=== PATIENT | male | born 1960 | race American Indian/Alaskan Native ===

== ENCOUNTER 2021-11-20 15:33 | Inpatient (IN) | payer MEDICARE ==
[2021-11-20] MEDS ORDERED: SODIUM CHLORIDE 0.9% 1000 ML 1,000 ML IV ONE (15:55)
[2021-11-20] MEDS ORDERED: LIP THERAPY VASELINE TP PRN (15:56)
[2021-11-20] MEDS ORDERED: MINERAL OIL/PETROLATUM, WHITE OPHTH OINT 3.5 GM OU PRN (15:56)
--- NOTE | 2021-11-20 16:09 | Emergency Department Report ---
ED CPR HPI - General Stated Complaint: CARDIAC ARREST Time Seen by Provider: 11/20/21 15:55 Source: EMS, old records reviewed Mode of arrival: Stretcher Limitations: Altered Mental Status - History of Present Illness Initial Comments: CC: cardiac arrest HPI: This is 61 yo male with hx of severe obesity who presents in cardiac arrest via EMS. Neighbors checked in on patient after observing his girlfriend wandering the neighborhood. Neighbor found patient unresponsive. Paramedics discovered patient not breathing, rhythm in asystole. Patient was treated with 3 doses of epinephrine, one dose of naloxone, one dose of sodium bicarbonate. Patient has Combitube in place. After 20 minutes of resuscitation, ROSC achieved just prior to arrival. Neighbors suspect recreational drug use. Paramedics observed drug paraphernalia. I spoke with paula at the bedside. Paula is unable to find the patient. Her son called patient's cell phone. natural resource officer into the phone and gave family update on patient's whereabouts. Kym arrived 1-1/2 hours after patient's presentation. According to kym's history, patient has history of COPD, CHF, diabetes mellitus and cocaine use. Last known use of cocaine was 1 year ago. Most recent hospitalization in July. He does have history of COVID-19 infection. He is normally admitted to [facility]. He did not have any recent illness. MD Complaint: found unresponsive Place: home Bystander CPR Performed: No Shock Advised: No Initial Findings in the Field: unresponsive ROSC in the Field: Yes (Just prior to arrival) Associated Injuries: No Treatments Prior to Arrival: other airway device (Combitube), epinephrine mgs # (3 doses), sodium bicarbonate (one doese), other (one dose naloxone) - Related Data Allergies Allergy/AdvReac Type Severity Reaction Status Date / Time No Known Allergies Allergy Unverified 06/20/16 07:15 ED Review of Systems ROS: Stated complaint: CARDIAC ARREST Other details as noted in HPI Comment: Unobtainable due to pts medical conditions (cardiac arrest nonrespons hannah) ED Past Medical Hx - Past Medical History Previous Medical History?: Yes Hx Hypertension: Yes Hx Congestive Heart Failure: Yes Hx Diabetes: Yes Hx COPD: Yes Additional medical history: severe obesity - Surgical History Past Surgical History?: Yes Additional Surgical History: Knee replacement - Family History Family history: other (unable to obtain this information) - Social History Smoking Status: Current Every Day Smoker Substance Use Type: Cocaine ED Physical Exam - General Limitations: Altered Mental Status General appearance: obtunded, other (GCS 3 no spontaneous movement, limp extremities, obese habitus) - Head Head exam: Present: atraumatic, normocephalic - Eye Pupils: Present: other (fixed dilated pupils) - ENT ENT exam: Present: normal orophraynx, other (EGD in place, no bleeding) - Neck Neck exam: Present: normal inspection, full ROM - Respiratory Respiratory exam: Present: other (Equal course breath sounds with ventilation, no spontaneous respiration) - Cardiovascular Cardiovascular Exam: Present: regular rate, normal rhythm, tachycardia. Absent: systolic murmur, diastolic murmur - GI/Abdominal GI/Abdominal exam: Present: soft, distended. Absent: tenderness, guarding, rebound - Extremities Exam Extremities exam: Present: normal inspection, other (No deformity) - Back Exam Back exam: Present: normal inspection - Neurological Exam Neurological exam: Present: other (No spontaneous movement, no withdrawal from painful stimuli) - Psychiatric Psychiatric exam: Present: other (Nonverbal eyes closed) - Skin Skin exam: Present: intact, pallor. Absent: cyanosis, diaphoretic, erythema, urticaria ED Course Vital Signs 11/20/21 11/20/21 15:55 16:00 Temperature 97 F L Pulse Rate 115 H 130 H Blood Pressure 89/45 84/36 O2 Sat by Pulse 100 89 Oximetry - ABG Interpretation Ph: 7.035 PCO2: 71 PO2: 90 Bicarbonate: -13.2 Interpretation: respiratory acidosis - Intubation Time Out Performed: No (Emergent situation cardiac arrest) Laryngoscope: Vita Size: 4 Assist Device Used: fiberoptic device (Video laryngoscopy) ET Tube Size: 7.5 Tube Secured Depth (cm): 22 Tube Secured Location: lips Tube Placement Confirmation: visualized tube passing t Patient Tolerated Procedure: well Intubation Complications: none - IO Left Tibia Consent Obtained: emergent situation Time Out Performed: Yes IO Instrument Used to Penetrate the Cortex: battery powered IO drill Patient Tolerated Procedure: well Complications: none ED Medical Decision Making - Lab Data Result diagrams: 11/20/21 16:22 11/20/21 16:22 Laboratory Results - last 24 hr 11/20/21 11/20/21 11/20/21 16:22 16:22 16:22 WBC 18.3 H RBC 4.26 Hgb 14.3 Hct 45.2 MCV 106 H MCH 34 H MCHC 32 RDW 16.5 H Plt Count 252 Lymph # (Auto) Student Union Consultant PT 15.7 H INR 1.12 APTT 32.8 D-Dimer 8419.54 H ABG pH ABG pCO2 ABG pO2 ABG HCO3 ABG O2 Saturation ABG O2 Content ABG Base Excess ABG Hemoglobin ABG Carboxyhemoglobin ABG Methemoglobin Oxyhemoglobin FiO2 Sodium TNR Potassium TNR Chloride TNR Carbon Dioxide TNR Anion Gap TNR BUN TNR Creatinine TNR Estimated GFR TNR BUN/Creatinine Ratio TNR Glucose TNR Calcium TNR Total Bilirubin TNR AST TNR ALT TNR Alkaline Phosphatase TNR Troponin T < 0.010 Total Protein TNR Albumin TNR Albumin/Globulin Ratio TNR 11/20/21 16:25 WBC RBC Hgb Hct MCV MCH MCHC RDW Plt Count Lymph # (Auto) PT INR APTT D-Dimer ABG pH 7.035 L* ABG pCO2 71.3 ABG pO2 90.4 H ABG HCO3 18.6 L ABG O2 Saturation 91.6 L ABG O2 Content 17.7 ABG Base Excess -13.2 L ABG Hemoglobin 14.4 ABG Carboxyhemoglobin 4.5 ABG Methemoglobin 0.7 Oxyhemoglobin 86.9 L FiO2 100 Sodium Potassium Chloride Carbon Dioxide Anion Gap BUN Creatinine Estimated GFR BUN/Creatinine Ratio Glucose Calcium Total Bilirubin AST ALT Alkaline Phosphatase Troponin T Total Protein Albumin Albumin/Globulin Ratio - Radiology Data Radiology results: report reviewed Patient Name: VALERI LOVE Gender: Male Date of : 1960 Referring Provider: FLO BRADY Organization: [facility] Accession Number: [id number] Requested Date: November 20, 2021 15:55 Report Status: Final Requested Procedure: 1 Procedure Description: XR chest 1V ap Modality: XR Findings Reporting MD: Fernandez Moralez Dictation Time: November 20, 2021 15:15 Conveyor Maintenance Mechanic: Not available Liquor Store Manager Date: Chest single view INDICATION: Dyspnea IMPRESSION: Endotracheal tube is about 2.5 cm above the louise. Severe airspace disease is noted within the left lung. The patient is severely rotated. Signer Name: Fernandez Moralez MD Signed: 11/20/2021 3:15 PM Workstation Name: [id number] Patient Name: VALERI LOVE Gender: Male Date of : 1960 Referring Provider: FLO BRADY Organization: [facility] Accession Number: [id number] Requested Date: November 20, 2021 16:06 Report Status: Final Requested Procedure: 1 Procedure Description: CT abdomen pelvis w con Modality: CT Findings Reporting MD: Fernandez Moralez Dictation Time: November 20, 2021 17:11 Conveyor Maintenance Mechanic: Not available Liquor Store Manager Date: CT chest w con CT abdomen pelvis w con, INDICATION / CLINICAL INFORMATION: Chest and abdominal pain. Cardiac arrest unresponsive TECHNIQUE: CT of the chest abdomen and pelvis following 100 mL O[address]ip[address] scans at this location are performed using CT dose reduction for ALARA by means of automated exposure control. COMPARISON: None available. FINDINGS: CHEST: Moderate bibasilar opacities likely related to atelectasis within both lower lungs. Tiny bilateral pleural effusions are present. The heart appears mildly enlarged. There is moderate coronary artery calcification. The endotracheal tube terminates about 3 cm above the louise. Right IJ central venous line terminates at the upper SVC level. Abdomen and pelvis: Fatty liver. The spleen pancreas right adrenal gland and kid neys are unremarkable. Prominent mild lipoma arising from the left adrenal gland measuring 3 cm in diameter with large amount of macroscopic fat. Moderate stool burden identified throughout the colon. Urinary bladder is collapsed by Williamson catheter. Small fat-containing bilateral inguinal hernias. Sigmoid diverticulosis without diverticulitis. No small or large bowel obstruction is identified. Scattered atherosclerotic calcification throughout a nondilated abdominal aorta. Review of bone windows demonstrates fusion involving L2-L3 vertebral bodies. IMPRESSION: 1. Cardiomegaly with medial bibasilar opacities probably related to atelectasis/low lung volumes. Underlying pneumonia/aspiration is difficult to exclude 2. Fatty liver. 3. Large stool burden identified throughout much of the proximal colon. Sigmoid diverticulosis without diverticulitis. Other incidental findings as noted above. Signer Name: Fernandez Moralez MD Signed: 11/20/2021 5:11 PM Workstation Name: [id number] Patient Name: VALERI LOVE Gender: Male Date of : 1960 Referring Provider: FLO BRADY Organization: [facility] Accession Number: [id number] Requested Date: November 20, 2021 16:05 Report Status: Final Requested Procedure: 1 Procedure Description: CT cervical spine wo con Modality: CT Findings Reporting MD: Artur Rich Dictation Time: November 20, 2021 17:20 Conveyor Maintenance Mechanic: Not available Liquor Store Manager Date: . CT CERVICAL SPINE: 11/20/2021 INDICATION / CLINICAL INFORMATION: cardiac arrest unresponsive. COMPARISON: None available. FINDINGS: CT images of the cervical spine were obtained. Images are evaluated in the axial, coronal, and sagittal planes. There is no evidence of acute osseous injury. Vertebral body height and alig nment is well preserved. There is no evidence of canal or foraminal narrowing. CRANIOCERVICAL JUNCTION: Unremarkable. PARASPINAL STRUCTURES: Unremarkable. Endotracheal tube is in place. IMPRESSION: No evidence of acute cervical spine abnormality. All CT scans at this location are performed using dose reduction to ALARA by means of automated exposure control. Signer Name: Artur Rich MD Signed: 11/20/2021 5:20 PM Workstation Name: [id number] Patient Name: VALERI LOVE Gender: Male Date of : 1960 Referring Provider: FLO BRADY Organization: [facility] Accession Number: [id number] Requested Date: November 20, 2021 16:05 Report Status: Final Requested Procedure: 1 Procedure Description: CT chest w con Modality: CT Findings Reporting MD: Fernandez Moralez Dictation Time: November 20, 2021 17:11 Conveyor Maintenance Mechanic: Not available Liquor Store Manager Date: CT chest w con CT abdomen pelvis w con, INDICATION / CLINICAL INFORMATION: Chest and abdominal pain. Cardiac arrest unresponsive TECHNIQUE: CT of the chest abdomen and pelvis following 100 mL Omnipaque [address] scans at this location are performed using CT dose reduction for ALARA by means of automated exposure control. COMPARISON: None available. FINDINGS: CHEST: Moderate bibasilar opacities likely related to atelectasis within both lower lungs. Tiny bilateral pleural effusions are present. The heart appears mildly enlarged. There is moderate coronary artery calcification. The endotracheal tube terminates about 3 cm above the louise. Right IJ central venous line terminates at the upper SVC level. Abdomen and pelvis: Fatty liver. The spleen pancreas right adrenal gland and kidneys are unremarkable. Prominent mild lipoma arising from the left adrenal gland measuring 3 cm in diameter with large amount of macroscopic fat. Moderate stool burden identified throughout the colon. Urinary bladder is collapsed by Williamson catheter. Small fat-containing bilateral inguinal hernias. Sigmoid diverticulosis without diverticulitis. No small or large bowel obstruction is identified. Scattered atherosclerotic calcification throughout a nondilated abdominal aorta. Review of bone windows demonstrates fusion involving L2-L3 vertebral bodies. IMPRESSION: 1. Cardiomegaly with medial bibasilar opacities probably related to atelectasis/low lung volumes. Underlying pneumonia/aspiration is difficult to exclude 2. Fatty liver. 3. Large stool burden identified throughout much of the proximal colon. Sigmoid diverticulosis without diverticulitis. Other incidental findings as noted above. Signer Name: Fernandez Moralez MD Signed: 11/20/2021 5:11 PM Workstation Name: [id number] Patient Name: VALERI LOVE Gender: Male Date of : 1960 Referring Provider: FLO BRADY Organization: [facility] Accession Number: [id number] Requested Date: November 20, 2021 16:04 Report Status: Final Requested Procedure: 1 Procedure Description: CT head/brain wo con Modality: CT Findings Reporting MD: Artur Rich Dictation Time: November 20, 2021 17:19 Conveyor Maintenance Mechanic: Not available Liquor Store Manager Date: CT BRAIN: 11/20/2021 INDICATION / CLINICAL INFORMATION: cardiac arrest unresponsive encephalopathic. COMPARISON: None available. FINDINGS: BRAIN/INTRACRANIAL STRUCTURES: Unenhanced CT images of the brain were obtained. There is diffuse loss of braun-white differentiation. There is no visible sulci. Ventricles are small in size. Overall brain parenchymal density appears to be decreased, resulting in enhanced visualization of vascular structures. The overall appearance suggests diffuse cerebral edema, consistent with anoxic injury. EXTRACRANIAL STRUCTURES: Unremarkable. Incidental note is made of a left ocular prosthesis IMPRESSION: Findings consistent with diffuse cerebral edema as described above. All CT scans at this location are performed using dose reduction to ALARA by means of automated exposure control. Signer Name: Artur Rich MD Signed: 11/20/2021 5:19 PM Workstation Name: [id number] - Medical Decision Making Mr. Mace is a 61-year-old male with history of CHF, COPD, diabetes mellitus and cocaine use who presents status post cardiac arrest. Patient required CPR and ACLS resuscitation on 3 occasions while in the emergency department. I informed fianc of the very poor prognosis. Neurological exam and pupillary response are indicative of anoxic brain injury. CT head corroborates this suspicion. Patient is admitted to the ICU in critical condition. Work-up revealed nonspecific leukocytosis. I suspect arrhythmia or acute myocardial infarction as a result of recent cocaine use. Patient is currently requiring triple vasopressor therapy: Norepinephrine, dopamine and vasopressin Critical Care Time: Yes Critical care time in (mins) excluding proc time.: 70 Critical care attestation.: If time is entered above; I have spent that time in minutes in the direct care of this critically ill patient, excluding procedure time. 70 minutes of critical care time excluding procedures were used in the care of the patient. I came immediately to the bedside upon patient's arrival. I obtained history from EMS at the bedside. I discussed treatment plan with the nursing team members. I reviewed electronic record. Patient required multiple interventions and reassessments. I spoke with family members at the bedside ED Disposition Clinical Impression: Acute hypoxemic respiratory failure, Cardiac arrest, Cardiogenic shock, Sepsis, Toxic metabolic encephalopathy Disposition: 09 ADMITTED INPATIENT Is pt being admited?: Yes Does the pt Need Aspirin: No Condition: Critical
[2021-11-20] MEDS ORDERED: NORepinephrine/NS 8 MG-250 ML 8 MG/250 ML INFUS..BTL IV ONE (16:13)
--- NOTE | 2021-11-20 16:16 | History and Physical Report ---
History of Present Illness Chief complaint: Unresponsive History of present illness: 61 YO Male with Unknown PMH presents to ED for evaluation. Patient actively undergoing cardiac arrest the time my evaluation and is unable provide history. Patient history taken EMS staff, ED staff, as well as patient neighbors. As per patient neighbors the patient's girlfriend was observed wandering aimlessly through the neighborhood appeared confused. Neighbor subsequently went to the patient's home to do a well check. The patient was found down and unresponsive in his home. EMS was notified and upon arrival the patient was found to be in asystolic arrest. Patient initiated on ACLS protocol and intubated in the field and subsequent transported to [facility] for further care and evaluation of the aforementioned symptoms. The patient was seen and evaluated in the emergency department. All lab and imaging studies reviewed. Patient found to be in cardiac arrest complicated by acute hypoxemic respiratory failure. Patient treated" with ACLS protocol with eventual return of perfusing cardiac rhythm. Patient subsequently intubated and placed on vent support. Patient found to have septic shock with systolic blood pressure in the 60s. Patient initiated on sepsis protocol as well as IV pressor support. No further history is obtainable. Prior admission on 09/21/2012 reviewed. No medication listed at time of admission for reconciliation. Advanced care planning conducted in ED. CT chest, CT head, CT abdomen pelvis pending at time of admission. Patient medically unstable at time of my evaluation and unable to undergo diagnostic imaging studies. Past History Past Medical History: No medical history, other (Unable to obtain) Past Surgical History: No surgical history, Other (Unable to obtain) Social history: no significant social history, other (Unable to obtain) Family history: no significant family history, other (Unable to obtain) Medications and Allergies Allergies Allergy/AdvReac Type Severity Reaction Status Date / Time No Known Allergies Allergy Unverified 06/20/16 07:15 Active Meds: Active Medications Famotidine (Famotidine 20 Mg/2 Ml Inj) 20 mg IV BID FRANK Hydrophilic Ointment (Lip Therapy Vaseline) 1 applic TP Q2HR PRN PRN Reason: Dry Lips Sodium Chloride (Nacl 0.9% 1000 Ml) 1,000 mls @ 999 mls/hr IV BOLUS ONE Stop: 11/20/21 16:55 Multi-Ingred Cream/Lotion/Oil/Oint (Mineral Oil/Petrolatum, White Ophth Oint 3.5 Gm) 1 applic OU Q4HR PRN PRN Reason: Dry Eye(s) Senna/Docusate Sodium (Sennosides/Docusate Sodium 8.6/50 Mg Tab) 1 tab FEEDTUBE BID FRANK Review of Systems ROS unobtainable: due to endotracheal tube, due to mental status Exam - Constitutional General appearance: Present: severe distress - EENT Eyes: Present: miosis ENT: hearing decreased - Neck Neck: Present: supple, normal ROM - Respiratory Respiratory effort: labored Respiratory: bilateral: diminished, rhonchi - Cardiovascular Heart Sounds: Present: S1 & S2. Absent: rub, click - Extremities Extremities: pulses symmetrical Extremity abnormal: edema Peripheral Pulses: abnormal (1+ and equal bilateral lower extremities, bilateral upper extremities) - Abdominal General gastrointestinal: Present: soft, non-distended, normal bowel sounds - Integumentary Integumentary: Present: dry, clammy, decreased turgor - Musculoskeletal Musculoskeletal: generalized weakness - Psychiatric Psychiatric: no appropriate mood/affect, no intact judgment & insight, no memory intact - Neurologic Neurologic: CNII-XII intact, no focal deficits, moves all extremities, no gait normal Results - Labs CBC & Chem 7: 11/20/21 16:22 11/20/21 16:22 Assessment and Plan - Patient Problems (1) Sepsis Current Visit: Yes Status: Acute Qualifiers: Severe sepsis shock status: with septic shock Plan to address problem: Sepsis protocol: Chest x-ray, urinalysis, IV antibiotic therapy, blood culture, IV antibiotic therapy, IV fluid resuscitation therapy, monitor urine output every shift, serial lactic acid level, IV pressor support, maintain mean arterial pressure greater than equal 65 The high probability of a clinically significant, sudden or life threatening deterioration of the [cardiac, pulmonary, neuro, renal, infectious disease] system(s) required my full and direct attention, intervention and personal management. The aggregate critical care time was [95] minutes. This time is in addition to time spent performing reported procedures but includes the following: [x] Data Review and interpretation [x] Patient assessment and monitoring of vital signs [x] Documentation [x] Medication orders and management (2) Acute hypoxemic respiratory failure Current Visit: Yes Status: Acute Plan to address problem: Patient independent ambulatory support: Wean vent as tolerated, daily spontaneous breathing trial, daily sedation holiday, critical care team consulted (3) Cardiac arrest Current Visit: Yes Status: Acute Plan to address problem: Cardiology team consulted in ED. Echocardiogram ordered and pending at time of admission. (4) Cardiogenic shock Current Visit: Yes Status: Acute Plan to address problem: IV pressor support, echocardiogram ordered and pending at time of admission, cardiology team consulted. (5) Toxic metabolic encephalopathy Current Visit: Yes Status: Acute Plan to address problem: CT head, neuro check, seizure precautions, aspiration precautions, treat sepsis. (6) Metabolic acidosis Current Visit: Yes Status: Acute Plan to address problem: IV fluid resuscitation therapy, BMP, repeat BMP in a.m., serial lactic acid level. (7) Pneumonia Current Visit: Yes Status: Acute Plan to address problem: Pneumonia protocol: Chest x-ray, CBC, CMP, IV antibiotic therapy, supplemental oxygen, pulse oximetry, nebulizer therapy, blood culture. (8) Obesity hypoventilation syndrome Current Visit: Yes Status: Acute Plan to address problem: Balanced diet, increase physical activity discharge. Outpatient pulmonary follow-up for sleep study. Outpatient bariatric surgery consult. (9) DVT prophylaxis Current Visit: Yes Status: Acute Plan to address problem: SCDs bilateral lower extremities while in bed, prophylactic anticoagulation (10) Advance care planning Current Visit: Yes Status: Acute Plan to address problem: Disease education conducted, care plan discussed, diagnoses discussed, prognosis discussed, patient is full code, +30 minutes.
--- NOTE | 2021-11-20 16:19 | XRay Report ---
Chest single view INDICATION: Dyspnea IMPRESSION: Endotracheal tube is about 2.5 cm above the louise. Severe airspace disease is noted with in the left lung. The patient is severely rotated. Signer Name: Fernandez Moralez MD Signed: 11/20/2021 4:15 PM Workstation Name: [id number]
[2021-11-20 16:46] LABS: Hematocrit 45.2 % (35.5-45.6); Hemoglobin 14.3 gm/dl (11.8-15.2); Mean Corpuscular HGB Conc 32 % (32-34); Mean Corpuscular Volume 106 fl (84-94); Platelet Count 252 K/mm3 (140-440); Red Blood Count 4.26 M/mm3 (3.65-5.03); Red Cell Distribution Width 16.5 % (13.2-15.2)
[2021-11-20 16:47] LABS: ABG Base Excess -13.2 mmol/L (-2.0-3.0); ABG HCO3 18.6 mmol/L (20.0-26.0); ABG Methemoglobin 0.7 % (0.0-1.5); ABG Oxygen Saturation 91.6 % (95.0-99.0); ABG PCO2 71.3 mm Hg; ABG PO2 90.4 mm Hg (80.0-90.0)
[2021-11-20 16:54] LABS: INR 1.12 (0.87-1.13)
[2021-11-20 16:55] LABS: Partial Thromboplastin Time 32.8 Sec. (24.2-36.6)
[2021-11-20 16:58] LABS: ABG PH 7.035 pH Units (7.350-7.450)
--- NOTE | 2021-11-20 17:03 | Procedure Note ---
Date of procedure: 11/20/21 Pre-op diagnosis: Acute respiratory failure, cardiogenic shock Post-op diagnosis: same Procedure: Right internal jugular vein triple-lumen catheter placement under ultrasound guidance. The patient was prepped and draped in the usual sterile fashion. A timeout was taken with the patient nurse at bedside to verify correct patient, correct procedure, as well as the correct operative site. Local anesthesia was obtained with 1% lidocaine. The Seldinger technique was utilized under ultrasound guidance to localize the right internal jugular vein without difficulty. A seeker needle was advanced into the right internal jugular vein under ultrasound guidance without difficulty. A guidewire was then advanced via the seeker needle into the right internal jugular vein and the seeker needle was subsequently removed over the guidewire. A scalpel was used to incise the skin. A dilator was then passed over the guidewire into the right internal jugular vein and subsequently removed. A preflushed triple-lumen catheter was then advanced to the right internal jugular vein over the guidewire. The guidewire was subsequently removed. All 3 ports flush and draw with ease. A Biopatch was placed at the insertion site. 3O nylon suture was utilized to suture the triple-lumen catheter in place. Postoperative chest x-ray shows triple-lumen catheter in satisfactory position in the superior vena cava. No evidence of pneumothorax. Estimated blood loss minimal. Complications none. Specimens none. Anesthesia: local Surgeon: JOSHUA WESTON Estimated blood loss: minimal Pathology: none Condition: critical Disposition: ICU Anesthesia: local Surgeon: JOSHUA WESTON Estimated blood loss: minimal Pathology: none Condition: critical Disposition: ICU
[2021-11-20 17:14] LABS: Blood Urea Nitrogen TNR mg/dL (9-20)
[2021-11-20 17:15] LABS: Alanine Aminotransferase TNR units/L (7-56); BUN/Creatinine Ratio TNR; Calcium TNR mg/dL (8.4-10.2)
[2021-11-20 17:16] LABS: Albumin TNR g/dL (3.9-5)
[2021-11-20 17:17] LABS: Hemolysis Index TNR
[2021-11-20] MEDS ORDERED: HYDROmorphone 1 MG/1 ML INJ IV PRN ×2 (17:36→17:40)
[2021-11-20] MEDS ORDERED: ACETAMINOPHEN 325 MG TAB PO PRN (17:36)
[2021-11-20] MEDS ORDERED: SODIUM CHLORIDE 0.9% 1000 ML IV SOLN IV ONE (17:36)
[2021-11-20] MEDS ORDERED: ACETAMINOPHEN 650 MG RECT SUPP PR PRN (17:40)
[2021-11-20] MEDS ORDERED: ALBUTEROL 2.5 MG/3 ML NEBU IH PRN (17:40)
[2021-11-20] MEDS ORDERED: oxyCODONE /ACETAMINOPHEN 5-325MG TAB PO PRN (17:40)
[2021-11-20] MEDS ORDERED: SODIUM CHLORIDE 0.9% 1000 ML 1,000 ML IV SCH (17:45)
[2021-11-20 18:09] LABS: Band Neutrophils # (Manual) 0.5 K/mm3; Basophils % (Manual) 0 % (0.0-1.8); Macrocytosis 2+; Myelocytes # (Manual) 0.4 K/mm3; Platelet Estimate Consistent w Auto; Total Cells Counted 100
[2021-11-20] MEDS: DOPamine 800 MG/D5W 250ML 800 MG/250 ML BAG IV SCH ×2 (18:09→22:55)
[2021-11-20] MEDS: NORepinephrine/NS 8 MG-250 ML 8 MG/250 ML INFUS..BTL IV SCH (18:09)
--- NOTE | 2021-11-20 18:16 | Cat Scan Report ---
CT chest w con CT abdomen pelvis w con, INDICATION / CLINICAL INFORMATION: Chest and abdominal pain. Cardiac arrest unresponsive TECHNIQUE: CT of the chest abdomen and pelvis following 100 mL Omnipaque [address] scans at this location are p erformed using CT dose reduction for ALARA by means of automated exposure control. COMPARISON: None available. FINDINGS: CHEST: Moderate bibasilar opacities likely related to atelectasis within both lower lungs. Tiny bilat eral pleural effusions are present. The heart appears mildly enlarged. There is moderate coronary art brad calcification. The endotracheal tube terminates about 3 cm above the louise. Right IJ central josue ous line terminates at the upper SVC level. Abdomen and pelvis: Fatty liver. The spleen pancreas right adrenal gland and kidneys are unremarkable . Prominent mild lipoma arising from the left adrenal gland measuring 3 cm in diameter with large rupert unt of macroscopic fat. Moderate stool burden identified throughout the colon. Urinary bladder is collapsed by Williamson catheter . Small fat-containing bilateral inguinal hernias. Sigmoid diverticulosis without diverticulitis. No small or large bowel obstruction is identified. Scattered atherosclerotic calcification throughout a nondilated abdominal aorta. Review of bone windows demonstrates fusion involving L2-L3 vertebral bodies. IMPRESSION: 1. Cardiomegaly with medial bibasilar opacities probably related to atelectasis/low lung volumes. Und erlying pneumonia/aspiration is difficult to exclude 2. Fatty liver. 3. Large stool burden identified throughout much of the proximal colon. Sigmoid diverticulosis withou t diverticulitis. Other incidental findings as noted above. Signer Name: Fernandez Moralez MD Signed: 11/20/2021 6:11 PM Workstation Name: [id number]
--- NOTE | 2021-11-20 18:23 | Cat Scan Report ---
CT BRAIN: 11/20/2021 INDICATION / CLINICAL INFORMATION: cardiac arrest unresponsive encephalopathic. COMPARISON: None available. FINDINGS: BRAIN/INTRACRANIAL STRUCTURES: Unenhanced CT images of the brain were obtained. There is diffuse loss of braun-white differentiation. There is no visible sulci. Ventricles are small in size. Overall brain parenchymal density appears to be decreased, resulting in enhanced visualizati on of vascular structures. The overall appearance suggests diffuse cerebral edema, consistent with anoxic injury. EXTRACRANIAL STRUCTURES: Unremarkable. Incidental note is made of a left ocular prosthesis IMPRESSION: Findings consistent with diffuse cerebral edema as described above. All CT scans at this location are performed using dose reduction to ALARA by means of automated expos ure control. Signer Name: Artur Rich MD Signed: 11/20/2021 6:19 PM Workstation Name: [id number]
--- NOTE | 2021-11-20 18:25 | Cat Scan Report ---
. CT CERVICAL SPINE: 11/20/2021 INDICATION / CLINICAL INFORMATION: cardiac arrest unresponsive. COMPARISON: None available. FINDINGS: CT images of the cervical spine were obtained. Images are evaluated in the axial, coronal, and sagitt al planes. There is no evidence of acute osseous injury. Vertebral body height and alignment is well preserved. There is no evidence of canal or foraminal narrowing. CRANIOCERVICAL JUNCTION: Unremarkable. PARASPINAL STRUCTURES: Unremarkable. Endotracheal tube is in place. IMPRESSION: No evidence of acute cervical spine abnormality. All CT scans at this location are performed using dose reduction to ALARA by means of automated expos ure control. Signer Name: Artur Rich MD Signed: 11/20/2021 6:20 PM Workstation Name: [id number]
[2021-11-20] MEDS ORDERED: CEFEPIME/NS 2 GM/100 ML 2 GM/100 ML BAG IV ONE (18:30)
[2021-11-20 19:22] LABS: Alanine Aminotransferase 147 units/L (7-56); Albumin 3.9 g/dL (3.9-5); BUN/Creatinine Ratio 11; Blood Urea Nitrogen 15 mg/dL (9-20); Calcium 9.6 mg/dL (8.4-10.2); Hemolysis Index 58
--- NOTE | 2021-11-20 20:24 | Event Note ---
Date: 11/20/21 FIFI DOM called while I was caring for patient at the bedside. Patient initiated on ACLS protocol with resulting return of perfusing cardiac rhythm. +35 minutes critical care time dedicated to bedside patient care, reviewing lab and imaging studies.
[2021-11-20] MEDS ORDERED: FAMOTIDINE 20 MG/2 ML INJ IV SCH (22:00)
--- NOTE | 2021-11-20 22:31 | XRay Report ---
CHEST 1 VIEW 11/20/2021 9:44 PM INDICATION / CLINICAL INFORMATION: NG tube placement. COMPARISON: 11/20/2021 FINDINGS: SUPPORT DEVICES: Enteric tube terminates distal to the field of view. No significant change in right IJ central venous catheter or enteric tube. HEART / MEDIASTINUM: Stable. LUNGS / PLEURA: Redemonstrated airspace opacities with less confluence of the left lung opacity. No p neumothorax. ADDITIONAL FINDINGS: No significant additional findings. IMPRESSION: 1. Enteric tube terminating below the field of view. 2. Improved aeration of the left lung with persistent bilateral airspace opacities appear Signer Name: Shawn Chapin DO Signed: 11/20/2021 10:26 PM Workstation Name: [id number]
--- NOTE | 2021-11-20 22:32 | XRay Report ---
ABDOMEN, SINGLE VIEW INDICATION / CLINICAL INFORMATION: OG tube placement. COMPARISON: None available. FINDINGS: Tip the NG tube is projecting in the proximal to midportion of the stomach and is in satisfactory pos ition. IMPRESSION: Satisfactory positioning of NG tube. Signer Name: Dior Roy MD Signed: 11/20/2021 10:27 PM Workstation Name: [id number]
[2021-11-20] MEDS: SENNOSIDES/DOCUSATE SODIUM 8.6/50 MG TAB FEEDTUBE SCH (23:08)
[2021-11-20 23:36] LABS: Amphetamine Screen,Urine PRESUMPTIVE NEGATIVE; Benzodiazepines Screen,Urine PRESUMPTIVE NEGATIVE; Cannabinoid Screen,Urine PRESUMPTIVE NEGATIVE; Cocaine Screen,Urine PRESUMPTIVE NEGATIVE; Methadone Screen,Urine PRESUMPTIVE NEGATIVE; Opiate Screen,Urine PRESUMPTIVE NEGATIVE
[2021-11-20 23:55] LABS: Bacteria,Urine 4+ /HPF (Negative); Bilirubin,Urine NEG (Negative); Blood,Urine SM (Negative); Color,Urine Yellow (Yellow); Mucus,Urine 3+ /HPF; Sperm,Urine 3+ /HPF (NP); Urobilinogen,Urine < 2.0 mg/dL (<2.0)
[2021-11-20] MEDS ORDERED: SODIUM BICARB 8.4% 50 MEQ/50 ML SYRINGE IV ONE (23:55)
[2021-11-20] MEDS ORDERED: EPINEPHrine 1 MG/10 ML SYRINGE ONE (23:55)
[2021-11-20] MEDS ORDERED: DOPamine DRIP 800 MG/D5W 250ML PreMix IV ONE (23:55)
[2021-11-20] MEDS ORDERED: CALCIUM CHLORIDE 1,000 MG/10 ML SYRINGE IV ONE (23:55)
[2021-11-20] MEDS ORDERED: LIDOCAINE PF 100 MG/5 ML (CARDIAC SYRINGE) IV ONE (23:55)
[2021-11-20] MEDS ORDERED: AMIODARONE 150 MG/3 ML INJ IV ONE (23:55)
[2021-11-21 00:59] LABS: ABG PCO2 60.6 mm Hg
[2021-11-21 01:00] LABS: ABG Base Excess -9.9 mmol/L (-2.0-3.0); ABG HCO3 20.2 mmol/L (20.0-26.0); ABG Methemoglobin 0.1 % (0.0-1.5); ABG Oxygen Saturation 91.1 % (95.0-99.0); ABG PO2 74.2 mm Hg (80.0-90.0)
[2021-11-21 01:01] LABS: ABG PH 7.141 pH Units (7.350-7.450)
[2021-11-21] MEDS ORDERED: SODIUM BICARB 8.4% 50 MEQ/50 ML SYRINGE IV ONE ×6 (01:27→17:00)
[2021-11-21] MEDS ORDERED: CEFEPIME/NS 2 GM/100 ML 2 GM/100 ML BAG IV SCH ×2 (02:00→22:00)
[2021-11-21] MEDS: NORepinephrine/NS 8 MG-250 ML 8 MG/250 ML INFUS..BTL IV SCH ×3 (02:13→14:25)
[2021-11-21] MEDS: VASOPRESSIN 20 UNIT in SODIUM CHLORIDE 0.9% 100 ML IV SCH ×2 (02:13→13:46)
[2021-11-21] MEDS: DOPamine 800 MG/D5W 250ML 800 MG/250 ML BAG IV SCH ×4 (02:15→15:27)
[2021-11-21 04:53] LABS: Mean Corpuscular HGB Conc 31 % (32-34); Mean Corpuscular Volume 105 fl (84-94); Red Cell Distribution Width 16.8 % (13.2-15.2)
[2021-11-21 05:00] LABS: Hematocrit 51.5 % (35.5-45.6); Hemoglobin 16.1 gm/dl (11.8-15.2)
[2021-11-21] MEDS ORDERED: EPINEPHrine 1 MG/1 ML 8 MG in SODIUM CHLORIDE 0.9% 250ML 242 ML IV SCH (05:00)
[2021-11-21 05:01] LABS: Platelet Count 280 K/mm3 (140-440)
[2021-11-21] MEDS ORDERED: DEXTROSE 10% *Hypoglycemia IV ONE (05:13)
[2021-11-21 05:15] LABS: Albumin 3.2 g/dL (3.9-5); Calcium 8.5 mg/dL (8.4-10.2)
[2021-11-21] MEDS: DEXTROSE 10% *Hypoglycemia IV PRN ×3 (05:32→16:15)
[2021-11-21] MEDS: EPINEPHrine 1 MG/1 ML 8 MG in SODIUM CHLORIDE 0.9% 250ML 242 ML IV SCH ×2 (05:45→16:15)
[2021-11-21 07:54] LABS: Anisocytosis Few; Band Neutrophils # (Manual) 1.2 K/mm3; Basophils % (Manual) 0 % (0.0-1.8); Eosinophils % (Manual) 0 % (0.0-4.3); Macrocytosis Few; Monocytes % (Manual) 0 % (0.0-7.3); Myelocytes # (Manual) 0.2 K/mm3; Platelet Estimate Consistent w Auto; Total Cells Counted 100
[2021-11-21] MEDS ORDERED: SODIUM BICARBONATE 150 MEQ in DEXTROSE 5% IN WATER 1,000 ML IV SCH (09:00)
[2021-11-21] MEDS ORDERED: SODIUM CHLORIDE 0.9% 1000 ML 1,000 ML IV ONE (09:00)
[2021-11-21] MEDS ORDERED: SODIUM BICARB 8.4% 50 MEQ/50 ML SYRINGE IV SCH ×2 (09:15→10:30)
[2021-11-21] MEDS: HEPARIN 5,000 UNIT/1 ML VIAL SUB-Q SCH ×2 (09:23→13:46)
[2021-11-21] MEDS ORDERED: POTASSIUM CHLORIDE 20 MEQ 20 MEQ/100 ML BAG IV ONE (09:30)
--- NOTE | 2021-11-21 09:48 | Consultation ---
History of Present Illness Consult date: 11/21/21 Requesting physician: JOSHUA WESTON Consult reason: cardiac arrest History of present illness: 61-year-old male with morbid obesity history is from review of medical records. Patient was found down by a neighbor after a wellness check. EMS was called patient was pulseless CPR initiated on and off resuscitation efforts were being made. Patient brought to the emergency room with ongoing CPR. Patient is on multiple pressors. CT of the head reveals cerebral edema. Bedside echocardiogram shows moderate severe LV dysfunction with moderate RV dilation. A review of the records questionable drug use. Unable to obtain history from family members. Past History Past Medical History: No medical history, other (Unable to obtain) Past Surgical History: No surgical history, Other (Unable to obtain) Social history: no significant social history, other (Unable to obtain) Family history: no significant family history, other (Unable to obtain) Medications and Allergies Allergies Allergy/AdvReac Type Severity Reaction Status Date / Time No Known Allergies Allergy Unverified 06/20/16 07:15 Active Meds: Active Medications Acetaminophen (Acetaminophen 325 Mg Tab) 650 mg PO Q6H PRN PRN Reason: Pain, Mild (1-3) Acetaminophen (Acetaminophen 650 Mg Rect Supp) 650 mg TN Q6H PRN PRN Reason: Pain MILD(1-3)/Fever >100.5/MIRZA Albuterol (Albuterol 2.5 Mg/3 Ml Nebu) 2.5 mg IH Q3HRT PRN PRN Reason: Shortness Of Breath Dextrose (Dextrose 10% *Hypoglycemia) 0 ml IV PRN PRN; Protocol PRN Reason: Hypoglycemia Last Admin: 11/21/21 05:32 Dose: 125 ml Famotidine (Famotidine 20 Mg/2 Ml Inj) 10 mg IV BID [facility] Last Admin: 11/21/21 09:23 Dose: 10 mg Heparin Sodium (Porcine) (Heparin 5,000 Unit/1 Ml Vial) 5,000 unit SUB-Q Q8HR [facility] Last Admin: 11/21/21 09:23 Dose: 5,000 unit Hydromorphone HCl (Hydromorphone 1 Mg/1 Ml Inj) 0.25 mg IV Q4H PRN PRN Reason: Pain, Moderate (4-6) Hydrophilic Ointment (Lip Therapy Vaseline) 1 applic TP Q2HR PRN PRN Reason: Dry Lips NORepinephrine/NS 8 MG-250 ML (Norepinephrine/Ns 8 Mg-250 Ml (Double Conc)) 8 mg in 250 mls @ 3.75 mls/hr IV TITRATE FRANK; Protocol Last Admin: 11/21/21 02:13 Dose: 15 mcg/min, 28.125 mls/hr Dopamine HCl/Dextrose (Dopamine 800 Mg/D5w 250ml) 800 mg in 250 mls @ 5.426 mls/hr IV TITR FRANK; Protocol Last Admin: 11/21/21 08:01 Dose: 20 mcg/kg/min, 54.263 mls/hr Sodium Chloride (Nacl 0.9% 1000 Ml) 1,000 mls @ 125 mls/hr IV DIRECT FRANK Vasopressin 20 unit/ Sodium (Chloride) 101 mls @ 9.09 mls/hr IV TITR FRANK; Protocol Last Admin: 11/21/21 02:13 Dose: 0.03 units/min, 9.09 mls/hr Epinephrine 8 mg/ Sodium (Chloride) 250 mls @ 3.75 mls/hr IV TITR FRANK; Protocol Stop: 11/22/21 04:59 Last Admin: 11/21/21 05:45 Dose: 10 mcg/min, 18.75 mls/hr Epinephrine 8 mg/ Sodium (Chloride) 250 mls @ 3.75 mls/hr IV TITR FRANK; Protocol Cefepime HCl (Cefepime/Ns 2 Gm/100 Ml) 2 gm in 100 mls @ 200 mls/hr IV Q24H FRANK; Protocol Sodium Chloride (Nacl 0.9% 1000 Ml) 1,000 mls @ 999 mls/hr IV BOLUS ONE Stop: 11/21/21 10:00 Last Admin: 11/21/21 09:27 Dose: 999 mls/hr Sodium Bicarbonate 150 meq/ (Dextrose) 1,150 mls @ 125 mls/hr IV DIRECT FRANK Last Admin: 11/21/21 09:24 Dose: 125 mls/hr Potassium Chloride (Kcl 20meq/100ml) 20 meq in 100 mls @ 100 mls/hr IV ONCE ONE Stop: 11/21/21 10:29 Last Admin: 11/21/21 09:24 Dose: 100 mls/hr Multi-Ingred Cream/Lotion/Oil/Oint (Mineral Oil/Petrolatum, White Ophth Oint 3.5 Gm) 1 applic OU Q4HR PRN PRN Reason: Dry Eye(s) Senna/Docusate Sodium (Sennosides/Docusate Sodium 8.6/50 Mg Tab) 1 tab FEEDTUBE BID [facility] Last Admin: 11/20/21 23:08 Dose: 1 tab Sodium Bicarbonate (Sodium Bicarb 8.4% 50 Meq/50 Ml Syringe) 100 meq IV ONCE@0915 [facility] Stop: 11/21/21 11:15 Last Admin: 11/21/21 09:23 Dose: 100 meq Sodium Chloride (Sodium Chloride 0.9% 10 Ml Flush Syringe) 10 ml IV BID [facility] Last Admin: 11/21/21 09:27 Dose: 10 ml Sodium Chloride (Sodium Chloride 0.9% 10 Ml Flush Syringe) 10 ml IV PRN PRN PRN Reason: LINE FLUSH Review of Systems ROS unobtainable: due to mental status Physical Examination Vital Signs Temp Pulse BP Pulse Ox 97 F L 115 H 89/45 100 11/20/21 15:55 11/20/21 15:55 11/20/21 15:55 11/20/21 15:55 General appearance: other HEENT: Positive: Other (Fixed pupils) Neck: Positive: neck supple Cardiac: Positive: Reg Rate and Rhythm Lungs: Positive: Decreased Breath Sounds Neuro: Positive: Other (Nonresponsive) Abdomen: Positive: Soft Extremities: Absent: +1 Edema Results 11/21/21 04:00 11/21/21 04:00 Cardiac Enzymes 11/20/21 11/20/21 11/21/21 Range/Units 16:22 18:15 04:00 AST TNR 227 H 376 H Coagulation 11/20/21 Range/Units 16:22 PT 15.7 H (12.2-14.9) Sec. INR 1.12 (0.87-1.13) APTT 32.8 (24.2-36.6) Sec. CBC 11/20/21 11/21/21 Range/Units 16:22 04:00 WBC 18.3 H 20.5 H (4.5-11.0) K/mm3 RBC 4.26 4.90 (3.65-5.03) M/mm3 Hgb 14.3 16.1 H (11.8-15.2) gm/dl Hct 45.2 51.5 H D (35.5-45.6) % Plt Count 252 280 (140-440) K/mm3 Lymph # (Auto) [employer] Comprehensive Metabolic Panel 11/20/21 11/20/21 11/21/21 Range/Units 16:22 18:15 04:00 Sodium TNR 143 144 Potassium TNR 3.6 3.3 L Chloride TNR 98.1 104.0 Carbon Dioxide TNR 15 L 20 L BUN TNR 15 25 H Creatinine TNR 1.4 H 2.7 H D Glucose TNR 173 H 73 L Calcium TNR 9.6 8.5 AST TNR 227 H 376 H ALT TNR 147 H 174 H Alkaline Phosphatase TNR 320 H 148 H Total Protein TNR 7.4 6.0 L Albumin TNR 3.9 3.2 L - Imaging and Cardiology Echo: pending EKG interpretations - Telemetry EKG Rhythm: Sinus Rhythm (Sinus rhythm nonspecific ST-T) Assessment and Plan 61-year-old male with morbid obesity prolonged cardiac arrest with moderate severe LV dysfunction acute renal failure acute liver failure hypoxemia with physical exam suggestive of anoxic brain injury poor prognosis patient on mult iple pressors. - Patient Problems (1) Acute renal failure Current Visit: Yes Status: Acute (2) Acute liver failure Current Visit: Yes Status: Acute (3) Cardiomyopathy Current Visit: Yes Status: Acute (4) Anoxic brain injury Current Visit: Yes Status: Acute (5) Acute hypoxemic respiratory failure Current Visit: Yes Status: Acute (6) Cardiac arrest Current Visit: Yes Status: Acute (7) Cardiogenic shock Current Visit: Yes Status: Acute (8) Obesity hypoventilation syndrome Current Visit: Yes Status: Acute (9) Pneumonia Current Visit: Yes Status: Acute (10) Sepsis Current Visit: Yes Status: Acute Qualifiers: Severe sepsis shock status: with septic shock (11) Toxic metabolic encephalopathy Current Visit: Yes Status: Acute
[2021-11-21 10:00] LABS: ABG Base Excess -14.7 mmol/L (-2.0-3.0); ABG HCO3 16.5 mmol/L (20.0-26.0); ABG Methemoglobin 0.7 % (0.0-1.5); ABG Oxygen Saturation 70.6 % (95.0-99.0); ABG PCO2 61.6 mm Hg
[2021-11-21] MEDS ORDERED: FAMOTIDINE 20 MG/2 ML INJ IV SCH (10:00)
[2021-11-21 10:03] LABS: ABG PH 7.045 pH Units (7.350-7.450)
[2021-11-21] MEDS: SENNOSIDES/DOCUSATE SODIUM 8.6/50 MG TAB FEEDTUBE SCH (10:42)
[2021-11-21 11:51] LABS: C-Reactive Protein 4.2 mg/dL (0.00-1.30)
--- NOTE | 2021-11-21 13:29 | Consultation ---
History of Present Illness - Reason for Consult Consult date: 11/21/21 acute renal failure - History of Present Illness The patient is a 61 YO male with unknown medical history who presented to [facility] ED 11/20 after he was found unresponsive. Patient was not able to provide any history at the time of eval and there was no family member at the bedside. The patient was found down and unresponsive in his home. EMS was notified and upon arrival the patient was found to be in asystolic arrest. Patient initiated on ACLS protocol and intubated in the field and subsequent transported to [facility] ED for further evaluation and treatment. All lab and imaging studies reviewed. Patient is currently intubated, on vent and on 4 pressors. Creatinine level is increasing with no UOP. Nephrology was consulted for further evaluation and treatment of VALERI. Past History Past Medical History: No medical history, other (Unable to obtain) Past Surgical History: No surgical history, Other (Unable to obtain) Social history: no significant social history, other (Unable to obtain) Family history: no significant family history, other (Unable to obtain) Medications and Allergies Allergies Allergy/AdvReac Type Severity Reaction Status Date / Time No Known Allergies Allergy Unverified 06/20/16 07:15 Active Meds: Active Medications Acetaminophen (Acetaminophen 325 Mg Tab) 650 mg PO Q6H PRN PRN Reason: Pain, Mild (1-3) Acetaminophen (Acetaminophen 650 Mg Rect Supp) 650 mg SD Q6H PRN PRN Reason: Pain MILD(1-3)/Fever >100.5/MIRZA Albuterol (Albuterol 2.5 Mg/3 Ml Nebu) 2.5 mg IH Q3HRT PRN PRN Reason: Shortness Of Breath Dextrose (Dextrose 10% *Hypoglycemia) 0 ml IV PRN PRN; Protocol PRN Reason: Hypoglycemia Last Admin: 11/21/21 12:17 Dose: 150 ml Famotidine (Famotidine 20 Mg/2 Ml Inj) 10 mg IV BID [facility] Last Admin: 11/21/21 09:23 Dose: 10 mg Heparin Sodium (Porcine) (Heparin 5,000 Unit/1 Ml Vial) 5,000 unit SUB-Q Q8HR [facility] Last Admin: 11/21/21 09:23 Dose: 5,000 unit Hydromorphone HCl (Hydromorphone 1 Mg/1 Ml Inj) 0.25 mg IV Q4H PRN PRN Reason: Pain, Moderate (4-6) Hydrophilic Ointment (Lip Therapy Vaseline) 1 applic TP Q2HR PRN PRN Reason: Dry Lips NORepinephrine/NS 8 MG-250 ML (Norepinephrine/Ns 8 Mg-250 Ml (Double Conc)) 8 mg in 250 mls @ 3.75 mls/hr IV TITRATE FRANK; Protocol Last Admin: 11/21/21 09:53 Dose: 30 mcg/min, 56.25 mls/hr Dopamine HCl/Dextrose (Dopamine 800 Mg/D5w 250ml) 800 mg in 250 mls @ 5.426 mls/hr IV TITR FRANK; Protocol Last Admin: 11/21/21 11:41 Dose: 20 mcg/kg/min, 54.263 mls/hr Sodium Chloride (Nacl 0.9% 1000 Ml) 1,000 mls @ 125 mls/hr IV DIRECT FRANK Vasopressin 20 unit/ Sodium (Chloride) 101 mls @ 9.09 mls/hr IV TITR FRANK; Protocol Last Admin: 11/21/21 02:13 Dose: 0.03 units/min, 9.09 mls/hr Epinephrine 8 mg/ Sodium (Chloride) 250 mls @ 3.75 mls/hr IV TITR FRANK; Protocol Stop: 11/22/21 04:59 Last Admin: 11/21/21 05:45 Dose: 10 mcg/min, 18.75 mls/hr Epinephrine 8 mg/ Sodium (Chloride) 250 mls @ 3.75 mls/hr IV TITR FRANK; Protocol Cefepime HCl (Cefepime/Ns 2 Gm/100 Ml) 2 gm in 100 mls @ 200 mls/hr IV Q24H [facility]; Protocol Sodium Bicarbonate 150 meq/ (Dextrose) 1,150 mls @ 125 mls/hr IV DIRECT [facility] Last Admin: 11/21/21 09:24 Dose: 125 mls/hr Multi-Ingred Cream/Lotion/Oil/Oint (Mineral Oil/Petrolatum, White Ophth Oint 3.5 Gm) 1 applic OU Q4HR PRN PRN Reason: Dry Eye(s) Senna/Docusate Sodium (Sennosides/Docusate Sodium 8.6/50 Mg Tab) 1 tab FEEDTUBE BID [facility] Last Admin: 11/21/21 10:42 Dose: Not Given Sodium Chloride (Sodium Chloride 0.9% 10 Ml Flush Syringe) 10 ml IV BID [facility] Last Admin: 11/21/21 09:27 Dose: 10 ml Sodium Chloride (Sodium Chloride 0.9% 10 Ml Flush Syringe) 10 ml IV PRN PRN PRN Reason: LINE FLUSH Review of Systems ROS unobtainable: due to endotracheal tube, due to mental status Exam - Vital Signs Vital signs: Vital Signs Temp Pulse BP Pulse Ox 97 F L 115 H 89/45 100 11/20/21 15:55 11/20/21 15:55 11/20/21 15:55 11/20/21 15:55 Results - Lab Results 11/21/21 16:00 11/21/21 16:00 Most recent lab results ABG pH 7.045 pH Units (7.350-7.450) L* 11/21/21 09:30 ABG pCO2 61.6 mm Hg 11/21/21 09:30 ABG pO2 50.0 mm Hg (80.0-90.0) L 11/21/21 09:30 ABG HCO3 16.5 mmol/L (20.0-26.0) L 11/21/21 09:30 ABG O2 Saturation 70.6 % (95.0-99.0) L 11/21/21 09:30 Calcium 8.5 mg/dL (8.4-10.2) 11/21/21 04:00 Phosphorus 11.50 mg/dL (2.5-4.5) H 11/21/21 10:47 Magnesium 2.50 mg/dL (1.7-2.3) H 11/21/21 10:47 Assessment and Plan 1. Acute kidney injury: Vasomotor VALERI in the setting of hypotension. S/p IV fluids. Has Williamson catheter. Monitor renal function. Creatinine level is better. Avoid nephrotoxic agents. Meds dosage based on GFR. 2. FEN: Anion-gap Metabolic acidosis, 2/2 Lactic acidosis, monitor. Monitor lytes and volume status. 3. Septic Shock vs Cardiogenic shock: Currently on 4 pressors. Empiric IV Abx. Titrate pressors for MAP goal above 65. 4. S/p Multiple Cardiac Arrest with ROSC: Found in asystole at home, EMS treated patient per ACLS protocol. Coded X2 while in the hospital per ACLS protocol ROSC was achieved. 5. Acute Hypoxic Respiratory Failure: Bilateral Pneumonia. Intubated in the field during code on 11/20. CT chest showed moderate bibasilar opacities. On vent. SPO2 goal above 92%. 6. Toxic Metabolic Encephalopathy: Absent brainstem reflexes. 7. Hypoglycemia: Hypoglycemic protocol. 8. Elevated D-Dimer: Monitor. 9. Transaminitis/Shock Liver: Continue to trend LFTs. Subjective: Patient was seen and examined at the bedside. Examination: General appearance: well-developed, appears stated age, morbidly obese, intubated, on vent HEENT: atraumatic, pupils not reacting to light Neck: trachea midline Respiratory: coarse beath sounds Heart: S1S2, regular, no murmur Abdomen: soft, bowel sounds heard, NT Integumentary: no obvious rash Neurologic: unresponsive Ext: no edema, pulses not palpalble, doppler+ : Williamson catheter
--- NOTE | 2021-11-21 14:13 | Consultation ---
History of Present Illness Consult date: 11/14/21 Past History Past Medical History: No medical history, other (Unable to obtain) Past Surgical History: No surgical history, Other (Unable to obtain) Social history: no significant social history, other (Unable to obtain) Family history: no significant family history, other (Unable to obtain) Medications and Allergies Allergies Allergy/AdvReac Type Severity Reaction Status Date / Time No Known Allergies Allergy Unverified 06/20/16 07:15 Active Meds: Active Medications Acetaminophen (Acetaminophen 325 Mg Tab) 650 mg PO Q6H PRN PRN Reason: Pain, Mild (1-3) Acetaminophen (Acetaminophen 650 Mg Rect Supp) 650 mg MT Q6H PRN PRN Reason: Pain MILD(1-3)/Fever >100.5/MIRZA Albuterol (Albuterol 2.5 Mg/3 Ml Nebu) 2.5 mg IH Q3HRT PRN PRN Reason: Shortness Of Breath Dextrose (Dextrose 10% *Hypoglycemia) 0 ml IV PRN PRN; Protocol PRN Reason: Hypoglycemia Last Admin: 11/21/21 12:17 Dose: 150 ml Famotidine (Famotidine 20 Mg/2 Ml Inj) 10 mg IV BID [facility] Last Admin: 11/21/21 09:23 Dose: 10 mg Heparin Sodium (Porcine) (Heparin 5,000 Unit/1 Ml Vial) 5,000 unit SUB-Q Q8HR [facility] Last Admin: 11/21/21 13:46 Dose: 5,000 unit Hydromorphone HCl (Hydromorphone 1 Mg/1 Ml Inj) 0.25 mg IV Q4H PRN PRN Reason: Pain, Moderate (4-6) Hydrophilic Ointment (Lip Therapy Vaseline) 1 applic TP Q2HR PRN PRN Reason: Dry Lips NORepinephrine/NS 8 MG-250 ML (Norepinephrine/Ns 8 Mg-250 Ml (Double Conc)) 8 mg in 250 mls @ 3.75 mls/hr IV TITRATE FRANK; Protocol Last Admin: 11/21/21 09:53 Dose: 30 mcg/min, 56.25 mls/hr Dopamine HCl/Dextrose (Dopamine 800 Mg/D5w 250ml) 800 mg in 250 mls @ 5.426 mls/hr IV TITR FRANK; Protocol Last Admin: 11/21/21 11:41 Dose: 20 mcg/kg/min, 54.263 mls/hr Sodium Chloride (Nacl 0.9% 1000 Ml) 1,000 mls @ 125 mls/hr IV DIRECT FRANK Vasopressin 20 unit/ Sodium (Chloride) 101 mls @ 9.09 mls/hr IV TITR FRANK; Protocol Last Admin: 11/21/21 13:46 Dose: 0.03 units/min, 9.09 mls/hr Epinephrine 8 mg/ Sodium (Chloride) 250 mls @ 3.75 mls/hr IV TITR FRANK; Protocol Stop: 11/22/21 04:59 Last Admin: 11/21/21 05:45 Dose: 10 mcg/min, 18.75 mls/hr Cefepime HCl (Cefepime/Ns 2 Gm/100 Ml) 2 gm in 100 mls @ 200 mls/hr IV Q24H [facility]; Protocol Sodium Bicarbonate 150 meq/ (Dextrose) 1,150 mls @ 125 mls/hr IV DIRECT FRANK Last Admin: 11/21/21 09:24 Dose: 125 mls/hr Multi-Ingred Cream/Lotion/Oil/Oint (Mineral Oil/Petrolatum, White Ophth Oint 3.5 Gm) 1 applic OU Q4HR PRN PRN Reason: Dry Eye(s) Senna/Docusate Sodium (Sennosides/Docusate Sodium 8.6/50 Mg Tab) 1 tab FEEDTUBE BID [facility] Last Admin: 11/21/21 10:42 Dose: Not Given Sodium Chloride (Sodium Chloride 0.9% 10 Ml Flush Syringe) 10 ml IV BID [facility] Last Admin: 11/21/21 09:27 Dose: 10 ml Sodium Chloride (Sodium Chloride 0.9% 10 Ml Flush Syringe) 10 ml IV PRN PRN PRN Reason: LINE FLUSH Physical Examination Vital signs: Vital Signs Temp Pulse BP Pulse Ox 97 F L 115 H 89/45 100 11/20/21 15:55 11/20/21 15:55 11/20/21 15:55 11/20/21 15:55 Results - Laboratory Findings CBC and BMP: 11/21/21 04:00 11/21/21 04:00 ABG ABG pH 7.045 pH Units (7.350-7.450) L* 11/21/21 09:30 ABG pCO2 61.6 mm Hg 11/21/21 09:30 ABG pO2 50.0 mm Hg (80.0-90.0) L 11/21/21 09:30 ABG O2 Saturation 70.6 % (95.0-99.0) L 11/21/21 09:30 PT/INR, D-dimer PT 15.7 Sec. (12.2-14.9) H 11/20/21 16:22 INR 1.12 (0.87-1.13) 11/20/21 16:22 D-Dimer 8419.54 ng/mlDDU (0-234) H 11/20/21 16:22 Abnormal lab findings: Abnormal Labs 11/20/21 11/20/21 11/20/21 16:22 16:22 16:25 WBC 18.3 H Hgb Hct MCV 106 H MCH 34 H MCHC RDW 16.5 H Seg Neuts % (Manual) Lymphocytes % (Manual) 38.0 H Nucleated RBC % Seg Neutrophils # Man 9.5 H Lymphocytes # (Manual) 7.0 H PT 15.7 H D-Dimer 8419.54 H ABG pH 7.035 L* ABG pO2 90.4 H ABG HCO3 18.6 L ABG O2 Saturation 91.6 L ABG Base Excess -13.2 L Oxyhemoglobin 86.9 L Potassium Carbon Dioxide BUN Creatinine Glucose POC Glucose Lactic Acid Phosphorus Magnesium AST ALT Alkaline Phosphatase Lactate Dehydrogenase C-Reactive Protein Total Protein Albumin Urine WBC (Auto) 11/20/21 11/20/21 11/20/21 18:15 18:15 22:50 WBC Hgb Hct MCV MCH MCHC RDW Seg Neuts % (Manual) Lymphocytes % (Manual) Nucleated RBC % Seg Neutrophils # Man Lymphocytes # (Manual) PT D-Dimer ABG pH ABG pO2 ABG HCO3 ABG O2 Saturation ABG Base Excess Oxyhemoglobin Potassium Carbon Dioxide 15 L BUN Creatinine 1.4 H Glucose 173 H POC Glucose Lactic Acid 10.50 H* 4.80 H* Phosphorus Magnesium AST 227 H ALT 147 H Alkaline Phosphatase 320 H Lactate Dehydrogenase C-Reactive Protein Total Protein Albumin Urine WBC (Auto) 11/20/21 11/21/21 11/21/21 22:55 00:40 04:00 WBC 20.5 H Hgb 16.1 H Hct 51.5 H D MCV 105 H MCH 33 H MCHC 31 L RDW 16.8 H Seg Neuts % (Manual) 86.0 H Lymphocytes % (Manual) 7.0 L Nucleated RBC % 1.0 H Seg Neutrophils # Man 17.6 H Lymphocytes # (Manual) PT D-Dimer ABG pH 7.141 L* ABG pO2 74.2 L ABG HCO3 ABG O2 Saturation 91.1 L ABG Base Excess -9.9 L Oxyhemoglobin 90.3 L Potassium Carbon Dioxide BUN Creatinine Glucose POC Glucose Lactic Acid Phosphorus Magnesium AST ALT Alkaline Phosphatase Lactate Dehydrogenase C-Reactive Protein Total Protein Albumin Urine WBC (Auto) 11.0 H 11/21/21 11/21/21 11/21/21 04:00 04:15 05:10 WBC Hgb Hct MCV MCH MCHC RDW Seg Neuts % (Manual) Lymphocytes % (Manual) Nucleated RBC % Seg Neutrophils # Man Lymphocytes # (Manual) PT D-Dimer ABG pH ABG pO2 ABG HCO3 ABG O2 Saturation ABG Base Excess Oxyhemoglobin Potassium 3.3 L Carbon Dioxide 20 L BUN 25 H Creatinine 2.7 H D Glucose 73 L POC Glucose 47 L Lactic Acid 6.10 H* Phosphorus Magnesium AST 376 H ALT 174 H Alkaline Phosphatase 148 H Lactate Dehydrogenase C-Reactive Protein Total Protein 6.0 L Albumin 3.2 L Urine WBC (Auto) 11/21/21 11/21/21 09:30 10:47 WBC Hgb Hct MCV MCH MCHC RDW Seg Neuts % (Manual) Lymphocytes % (Manual) Nucleated RBC % Seg Neutrophils # Man Lymphocytes # (Manual) PT D-Dimer ABG pH 7.045 L* ABG pO2 50.0 L ABG HCO3 16.5 L ABG O2 Saturation 70.6 L ABG Base Excess -14.7 L Oxyhemoglobin 69.3 L Potassium Carbon Dioxide BUN Creatinine Glucose POC Glucose Lactic Acid Phosphorus 11.50 H Magnesium 2.50 H AST ALT Alkaline Phosphatase Lactate Dehydrogenase 2692 H C-Reactive Protein 4.20 H Total Protein Albumin Urine WBC (Auto)
[2021-11-21] MEDS ORDERED: CALCIUM CHLORIDE 1,000 MG/10 ML SYRINGE IV ONE ×2 (15:36→15:40)
[2021-11-21] MEDS ORDERED: EPINEPHrine 1 MG/10 ML SYRINGE ONE (15:40)
[2021-11-21] MEDS ORDERED: SODIUM CHLORIDE 0.9% 500 ML 500 ML ONE (15:58)
[2021-11-21] MEDS ORDERED: PHENYLEPHRINE 100 MG in SODIUM CHLORIDE 0.9% 90 ML IV SCH (16:00)
[2021-11-21] MEDS ORDERED: PANTOPRAZOLE 40 MG INJ IV SCH (16:00)
[2021-11-21] MEDS ORDERED: CALCIUM GLUCONATE 1,000 MG in SODIUM CHLORIDE 0.9% 100 ML IV ONE (16:22)
[2021-11-21 16:46] LABS: Creatine Kinase MB 83.5 ng/mL (0.0-4.0)
[2021-11-21 16:48] LABS: Albumin 2.1 g/dL (3.9-5); Calcium 9.6 mg/dL (8.4-10.2)
[2021-11-21 16:56] LABS: Mean Corpuscular HGB Conc 31 % (32-34); Platelet Count 162 K/mm3 (140-440); Red Blood Count 3.68 M/mm3 (3.65-5.03); Red Cell Distribution Width 17.8 % (13.2-15.2)
--- NOTE | 2021-11-21 16:57 | Event Note ---
Date: 11/21/21 FIFI OLMOS called while I was caring for patient at the bedside. Patient initiated on ACLS protocol with resulting return of perfusing cardiac rhythm. See fifi olmos sheath documentation for details
--- NOTE | 2021-11-21 17:03 | Progress Note ---
<KATHERYN TRIVEDI - Last Filed: 11/21/21 17:56> Assessment and Plan Assessment and plan: This is a 61-year-old male with unknown past medical history admitted s/p cardiac arrest now on ventilatory support Hospital Course to Date: 11/21: On the vent and unresponsive, not on any sedation. Pupils are irregular and nonreactive, with no gag/cough reflexes. CT head noted, Teleneurology consulted. Patient remains severely acidotic, on 4 pressors, bcarb gtt added. 2D Echo pending and cardiology is following. Renal function is also worsening, Nephrology consulted. ID was also consulted for possible septic shock, continue IV Abx for now. Will also check BLE doppler to r/o DVT due to elevated D-Dimer. Electrolytes repleted. Attending spoke with patient's estranged , Sintia Medina. She was updated on patient's condition and overal poor prognosis. Goal of discussion was initiated, patient's family wants to wait until tomorrow before making a decision. Patient remains a FULL code status at time. Possible MRI brain flow study in the am. Assessment and Plan #Septic Shock vs Cardiogenic shock #S/p Multiple Cardiac Arrest with ROSC - Found in asystole at home, EMS treated patient per ACLS protocol - Coded X2 while in the hospital per ACLS protocol ROSC was achieved - Patient is current on 4 pressors: Dopamine, Levophed, vaso, and EPI gtts - Remains hypotensive and severely acidotic - Bcarb gtt added - 2D Echo pending - Cardiology consulted, appreciate recommendations - Continue Empiric IV Abx for now - Continue blood pressure monitor per protocol - Titrate pressors for MAP goal above 65 #Acute Hypoxic Respiratory Failure #Bilateral Pneumonia - Intubated in the field during code on 11/20 - CT chest shows moderate bibasilar opacities likely related to atelectasis within both lower lungs. - Vent setting:PRVC-100%,14,30,500 - This am ABG noted, Bcarb gtt added - CCM consulted, appreciate recommendations - Continue IV Abx and Nebs per CCM - VAP bundle addressed - Aspiration precaution HOB above 30 - Daily ABG and CXR - Continue SPO2 monitoring for SPO2 goal above 92% #Acute Kidney Injury(VALERI) most like ATN #Hypokalemia - due to hypoperfusion/hypotension - Scr. doubled this am - Patient is now with no UOP - Nephrology on consult, appreciated recommendation - Strict intake and output - Avoid nephrotoxic medications; Renally dose medications - Williamson in place - Monitor and replace electrolytes as needed - Check mag and phos #Septic Shock #Bilateral Pneumonia #Leukocytosis #Metabolic Acidosis - Leukocytosis, with elevated lactic, hypotensive requiring multiple pressors now on Bcarb gtt - Cultures are pending - Patient remains afebrile - ID consulted - Continue Empiric IV ABx for now - F/u on culture data - trend CBC and lactic acid #Toxic Metabolic Encephalopathy - Unresponsive, not on any sedation - Pupils are irregular and nonreactive, no gag/cough reflexes - CT head findings consistent with diffuse cerebral edema - TeleNeuro consulted, for further recommendation - Will also consult Neurology - Continue Neuro check per per unit - seizure precautions and aspiration precautions #Hypoglycemia - Hypoglycemic protocol - Check BG level per hypoglycemic protocol, then Q6hrs - Hold TF for now due to high pressor requirement - Bcarb gtt in D5w - Avoid hypoglycemia #Elevated D-Dimer - Doppler ordered - Heparin SubQ initiated #Transaminitis/Shock Liver - most likely 2/2 cardiac arrest - Continue to trend LFTs #GI/DVT prophylaxis - PPI- Pepcid - Heparin SubQ - SCDs bilateral lower extremities while in bed The high probability of a clinically significant, sudden or life threatening d eterioration of the [multiple] system(s) required my full and direct attention, intervention and personal management. The aggregate critical care time was [60] minutes. This time is in addition to time spent performing reported procedures but includes the following: [x] Data Review and interpretation [x] Patient assessment and monitoring of vital signs [x] Documentation [x] Medication orders and management Disposition Plan: ICU Total Time Spent with Patient (Minutes): 60 History Interval history: Patient seen and examined at the bedside. Intubated and unresponsive, not on any sedation. Pupils are irregular and nonreactive with no gag no cough. Patient is currently on 4pressors: Levo, vaso, Dopamine, and EPi. Hospitalist Physical - Constitutional Vitals: Temp Pulse Resp BP Pulse Ox 98 F 89 30 H 87/46 84 11/21/21 13:34 11/21/21 15:05 11/21/21 15:05 11/21/21 15:05 11/21/21 15:05 General appearance: Present: no acute distress, other (Intubated and unresponsive) - EENT Eyes: Present: irregular pupil (nonreactive) - Respiratory Respiratory effort: normal Respiratory: bilateral: diminished - Cardiovascular Rhythm: regular Heart Sounds: Present: S1 & S2 - Extremities Extremities: no ischemia, pulses intact, pulses symmetrical Extremity abnormal: edema - Peripheral Assessment Generalized Edema Type: Non-pitting Edema Degree: 2+ Capillary Refill: < 3 seconds Skin Temperature: Warm Peripheral Pulses: within normal limits - Abdominal General gastrointestinal: soft, distended, absent bowel sounds - Integumentary Integumentary: Present: warm, dry - Psychiatric Psychiatric: other (Intubated and unresponsive) - Neurologic Neurologic: focal deficits (Pupils are irregular and nonreactive, no gag/cough), other (Intubated and unresponsive) - Allied Health Allied health notes reviewed: nursing HEART Score - HEART Score Troponin: Troponin T < 0.010 ng/mL (0.00-0.029) 11/20/21 16:22 Results - Labs CBC & Chem 7: 11/21/21 16:00 11/21/21 16:00 Labs: Laboratory Last Values WBC 20.5 K/mm3 (4.5-11.0) H 11/21/21 04:00 RBC 4.90 M/mm3 (3.65-5.03) 11/21/21 04:00 Hgb 16.1 gm/dl (11.8-15.2) H 11/21/21 04:00 Hct 51.5 % (35.5-45.6) H D 11/21/21 04:00 MCV 105 fl (84-94) H 11/21/21 04:00 MCH 33 pg (28-32) H 11/21/21 04:00 MCHC 31 % (32-34) L 11/21/21 04:00 RDW 16.8 % (13.2-15.2) H 11/21/21 04:00 Plt Count 280 K/mm3 (140-440) 11/21/21 04:00 Lymph # (Auto) Scale Adjuster 11/20/21 16:22 Add Manual Diff Complete 11/21/21 04:00 Total Counted 100 11/21/21 04:00 Seg Neuts % (Manual) 86.0 % (40.0-70.0) H 11/21/21 04:00 Band Neutrophils % 6.0 % 11/21/21 04:00 Lymphocytes % (Manual) 7.0 % (13.4-35.0) L 11/21/21 04:00 Reactive Lymphs % (Man) 0 % 11/21/21 04:00 Monocytes % (Manual) 0 % (0.0-7.3) 11/21/21 04:00 Eosinophils % (Manual) 0 % (0.0-4.3) 11/21/21 04:00 Basophils % (Manual) 0 % (0.0-1.8) 11/21/21 04:00 Metamyelocytes % 0 % 11/21/21 04:00 Myelocytes % 1.0 % 11/21/21 04:00 Promyelocytes % 0 % 11/21/21 04:00 Blast Cells % 0 % 11/21/21 04:00 Nucleated RBC % 1.0 % (0.0-0.9) H 11/21/21 04:00 Seg Neutrophils # Man 17.6 K/mm3 (1.8-7.7) H 11/21/21 04:00 Band Neutrophils # 1.2 K/mm3 11/21/21 04:00 Lymphocytes # (Manual) 1.4 K/mm3 (1.2-5.4) 11/21/21 04:00 Abs React Lymphs (Man) 0.0 K/mm3 11/21/21 04:00 Monocytes # (Manual) 0.0 K/mm3 (0.0-0.8) 11/21/21 04:00 Eosinophils # (Manual) 0.0 K/mm3 (0.0-0.4) 11/21/21 04:00 Basophils # (Manual) 0.0 K/mm3 (0.0-0.1) 11/21/21 04:00 Metamyelocytes # 0.0 K/mm3 11/21/21 04:00 Myelocytes # 0.2 K/mm3 11/21/21 04:00 Promyelocytes # 0.0 K/mm3 11/21/21 04:00 Blast Cells # 0.0 K/mm3 11/21/21 04:00 WBC Morphology Not Reportable 11/21/21 04:00 Hypersegmented Neuts Not Reportable 11/21/21 04:00 Hyposegmented Neuts Not Reportable 11/21/21 04:00 Hypogranular Neuts Not Reportable 11/21/21 04:00 Smudge Cells Not Reportable 11/21/21 04:00 Toxic Granulation Not Reportable 11/21/21 04:00 Toxic Vacuolation Not Reportable 11/21/21 04:00 Dohle Bodies Not Reportable 11/21/21 04:00 Pelger-Huet Anomaly Not Reportable 11/21/21 04:00 Юлия Rods Not Reportable 11/21/21 04:00 Platelet Estimate Consistent w auto 11/21/21 04:00 Clumped Platelets Not Reportable 11/21/21 04:00 Plt Clumps, EDTA Not Reportable 11/21/21 04:00 Large Platelets Not Reportable 11/21/21 04:00 Giant Platelets Not Reportable 11/21/21 04:00 Platelet Satelliting Not Reportable 11/21/21 04:00 Plt Morphology Comment Not Reportable 11/21/21 04:00 RBC Morphology Not Reportable 11/21/21 04:00 Dimorphic RBCs Not Reportable 11/21/21 04:00 Polychromasia Few 11/21/21 04:00 Hypochromasia Not Reportable 11/21/21 04:00 Poikilocytosis Not Reportable 11/21/21 04:00 Anisocytosis Few 11/21/21 04:00 Microcytosis Not Reportable 11/21/21 04:00 Macrocytosis Few 11/21/21 04:00 Spherocytes Not Reportable 11/21/21 04:00 Pappenheimer Bodies Not Reportable 11/21/21 04:00 Sickle Cells Not Reportable 11/21/21 04:00 Target Cells Not Reportable 11/21/21 04:00 Tear Drop Cells Not Reportable 11/21/21 04:00 Ovalocytes Not Reportable 11/21/21 04:00 Helmet Cells Not Reportable 11/21/21 04:00 Hung-Hypoluxo Bodies Not Reportable 11/21/21 04:00 Graff Rings Not Reportable 11/21/21 04:00 [place] Cells Not Reportable 11/21/21 04:00 Bite Cells Not Reportable 11/21/21 04:00 Crenated Cell Not Reportable 11/21/21 04:00 Elliptocytes Not Reportable 11/21/21 04:00 Acanthocytes (Spur) Not Reportable 11/21/21 04:00 Rouleaux Not Reportable 11/21/21 04:00 Hemoglobin C Crystals Not Reportable 11/21/21 04:00 Schistocytes Not Reportable 11/21/21 04:00 Malaria parasites Not Reportable 11/21/21 04:00 Ramon Bodies Not Reportable 11/21/21 04:00 Hem Pathologist Commnt No 11/21/21 04:00 PT 15.7 Sec. (12.2-14.9) H 11/20/21 16:22 INR 1.12 (0.87-1.13) 11/20/21 16:22 APTT 32.8 Sec. (24.2-36.6) 11/20/21 16:22 D-Dimer 8419.54 ng/mlDDU (0-234) H 11/20/21 16:22 ABG pH 7.045 pH Units (7.350-7.450) L* 11/21/21 09:30 ABG pCO2 61.6 mm Hg 11/21/21 09:30 ABG pO2 50.0 mm Hg (80.0-90.0) L 11/21/21 09:30 ABG HCO3 16.5 mmol/L (20.0-26.0) L 11/21/21 09:30 ABG O2 Saturation 70.6 % (95.0-99.0) L 11/21/21 09:30 ABG O2 Content 14.4 (0.0-44) 11/21/21 09:30 ABG Base Excess -14.7 mmol/L (-2.0-3.0) L 11/21/21 09:30 ABG Hemoglobin 14.8 gm/dl (14.0-18.0) 11/21/21 09:30 ABG Carboxyhemoglobin 1.0 % (0.0-5.0) 11/21/21 09:30 ABG Methemoglobin 0.7 % (0.0-1.5) 11/21/21 09:30 Oxyhemoglobin 69.3 % (95.0-99.0) L 11/21/21 09:30 FiO2 100 % 11/21/21 09:30 Sodium 147 mmol/L (137-145) H 11/21/21 16:00 Potassium 4.3 mmol/L (3.6-5.0) D 11/21/21 16:00 Chloride 93.9 mmol/L (98-107) L 11/21/21 16:00 Carbon Dioxide 17 mmol/L (22-30) L 11/21/21 16:00 Anion Gap 40 mmol/L 11/21/21 16:00 BUN 30 mg/dL (9-20) H 11/21/21 16:00 Creatinine 4.0 mg/dL (0.8-1.3) H 11/21/21 16:00 Estimated GFR 19 ml/min 11/21/21 16:00 BUN/Creatinine Ratio 8 % 11/21/21 16:00 Glucose 227 mg/dL (75-100) H 11/21/21 16:00 POC Glucose 184 mg/dL (70-105) H 11/21/21 16:24 Lactic Acid 22.40 mmol/L (0.7-2.0) H* 11/21/21 16:00 Calcium 9.6 mg/dL (8.4-10.2) 11/21/21 16:00 Phosphorus 16.20 mg/dL (2.5-4.5) H D 11/21/21 16:00 Magnesium 2.70 mg/dL (1.7-2.3) H 11/21/21 16:00 Total Bilirubin 0.80 mg/dL (0.1-1.2) 11/21/21 16:00 AST 376 units/L (5-40) H 11/21/21 04:00 ALT 174 units/L (7-56) H 11/21/21 04:00 Alkaline Phosphatase 163 units/L (35-129) H 11/21/21 16:00 Lactate Dehydrogenase 2692 units/L (91-180) H 11/21/21 10:47 CK-MB (CK-2) 83.5 ng/mL (0.0-4.0) H 11/21/21 16:00 Troponin T < 0.010 ng/mL (0.00-0.029) 11/20/21 16:22 C-Reactive Protein 4.20 mg/dL (0.00-1.30) H 11/21/21 10:47 Total Protein 3.9 g/dL (6.3-8.2) L D 11/21/21 16:00 Albumin 2.1 g/dL (3.9-5) L 11/21/21 16:00 Albumin/Globulin Ratio 1.2 % 11/21/21 16:00 Procalcitonin 81.86 ng/mL (<0.15) 11/21/21 10:47 Urine Color Yellow (Yellow) 11/20/21 22:55 Urine Turbidity Cloudy (Clear) 11/20/21 22:55 Urine pH 6.0 (5.0-7.0) 11/20/21 22:55 Ur Specific [place] 1.011 (1.003-1.030) 11/20/21 22:55 Urine Protein 30 mg/dl mg/dL (Negative) 11/20/21 22:55 Urine Glucose (UA) Neg mg/dL (Negative) 11/20/21 22:55 Urine Ketones Neg mg/dL (Negative) 11/20/21 22:55 Urine Blood Sm (Negative) 11/20/21 22:55 Urine Nitrite Neg (Negative) 11/20/21 22:55 Urine Bilirubin Neg (Negative) 11/20/21 22:55 Urine Urobilinogen < 2.0 mg/dL (<2.0) 11/20/21 22:55 Ur Leukocyte Esterase Neg (Negative) 11/20/21 22:55 Urine WBC (Auto) 11.0 /HPF (0.0-6.0) H 11/20/21 22:55 Urine RBC (Auto) 12.0 /HPF (0.0-6.0) 11/20/21 22:55 U Epithel Cells (Auto) < 1.0 /HPF (0-13.0) 11/20/21 22:55 Urine Bacteria (Auto) 4+ /HPF (Negative) 11/20/21 22:55 Urine Mucus 3+ /HPF 11/20/21 22:55 Urine Yeast (Budding) 2+ /HPF 11/20/21 22:55 Urine Sperm 3+ /HPF (USER INTERFACE ARTIST) 11/20/21 22:55 Urine Opiates Screen Presumptive negative 11/20/21 22:55 Urine Methadone Screen Presumptive negative 11/20/21 22:55 Ur Barbiturates Screen Presumptive negative 11/20/21 22:55 Ur Phencyclidine Scrn Presumptive negative 11/20/21 22:55 Ur Amphetamines Screen Presumptive negative 11/20/21 22:55 U Benzodiazepines Scrn Presumptive negative 11/20/21 22:55 Urine Cocaine Screen Presumptive negative 11/20/21 22:55 U Marijuana (THC) Screen Presumptive negative 11/20/21 22:55 Drugs of Abuse Note Disclamer 11/20/21 22:55 Blood Type O POSITIVE 11/20/21 18:15 Antibody Screen Negative 11/20/21 18:15 Microbiology: Microbiology 11/20/21 Unknown Sputum - Endotracheal Wash Sputum Culture - Preliminary 11/20/21 18:15 Peripheral/Venous Blood Culture - Preliminary Culture in Progress 11/20/21 18:15 Peripheral/Venous Blood Culture - Preliminary Culture in Progress Williamson/IV: Voiding Method Indwelling Catheter Active Medications - Current Medications Current Medications: Generic Name Dose Route Start Last Admin Trade Name Freq PRN Reason Stop Dose Admin Acetaminophen 650 mg 11/20/21 17:36 Acetaminophen 325 Mg Tab PO Q6H PRN Pain, Mild (1-3) Acetaminophen 650 mg 11/20/21 17:40 Acetaminophen 650 Mg Rect Supp OH Q6H PRN Pain MILD(1-3)/Fever >100.5/MIRZA Albuterol 2.5 mg 11/20/21 17:40 Albuterol 2.5 Mg/3 Ml Nebu IH Q3HRT PRN Shortness Of Breath Dextrose 0 ml 11/21/21 05:30 11/21/21 16:15 Dextrose 10% *Hypoglycemia IV 250 ml PRN PRN Administration Hypoglycemia Protocol Heparin Sodium (Porcine) 5,000 unit 11/21/21 09:00 11/21/21 13:46 Heparin 5,000 Unit/1 Ml Vial SUB-Q 5,000 unit Q8HR FRANK Administration Hydromorphone HCl 0.25 mg 11/20/21 17:36 Hydromorphone 1 Mg/1 Ml Inj IV Q4H PRN Pain, Moderate (4-6) Hydrophilic Ointment 1 applic 11/20/21 15:56 Lip Therapy Vaseline TP Q2HR PRN Dry Lips NORepinephrine/NS 8 MG-250 ML 8 mg in 250 mls @ 3.75 mls/hr 11/20/21 18:00 11/21/21 14:25 Norepinephrine/Ns 8 Mg-250 Ml (Double Conc) IV 30 mcg/min TITRATE FRANK 56.25 mls/hr Administration Protocol 2 MCG/MIN Dopamine HCl/Dextrose 800 mg in 250 mls @ 5.426 mls/hr 11/20/21 18:00 11/21/21 15:27 Dopamine 800 Mg/D5w 250ml IV 20 mcg/kg/min TITR FRANK 54.263 mls/hr Administration Protocol 2 MCG/KG/MIN Sodium Chloride 1,000 mls @ 125 mls/hr 11/20/21 17:45 Nacl 0.9% 1000 Ml IV DIRECT FRANK Vasopressin 20 unit/ Sodium 101 mls @ 9.09 mls/hr 11/20/21 19:00 11/21/21 13:46 Chloride IV 0.03 units/min TITR FRANK 9.09 mls/hr Administration Protocol 0.03 UNITS/MIN Epinephrine 8 mg/ Sodium 250 mls @ 3.75 mls/hr 11/21/21 05:00 11/21/21 16:15 Chloride IV 11/22/21 04:59 10 mcg/min TITR FRANK 18.75 mls/hr Administration Protocol 2 MCG/MIN Cefepime HCl 2 gm in 100 mls @ 200 mls/hr 11/21/21 22:00 Cefepime/Ns 2 Gm/100 Ml IV Q24H FRANK Protocol Sodium Bicarbonate 150 meq/ 1,150 mls @ 125 mls/hr 11/21/21 09:00 11/21/21 09:24 Dextrose IV 125 mls/hr DIRECT FRANK Administration Phenylephrine HCl 100 mg/ 100 mls @ 3 mls/hr 11/21/21 16:00 11/21/21 16:00 Sodium Chloride IV 250 mcg/min TITR FRANK 15 mls/hr Administration Protocol 50 MCG/MIN Multi-Ingred Cream/Lotion/Oil/Oint 1 applic 11/20/21 15:56 Mineral Oil/Petrolatum, White Ophth Oint 3.5 Gm OU Q4HR PRN Dry Eye(s) Pantoprazole Sodium 40 mg 11/21/21 16:00 11/21/21 16:36 Pantoprazole 40 Mg Inj IV 40 mg BID FRANK Administration Senna/Docusate Sodium 1 tab 11/20/21 22:00 11/21/21 10:42 Sennosides/Docusate Sodium 8.6/50 Mg Tab FEEDTUBE Not Given BID FRANK Sodium Chloride 10 ml 11/20/21 22:00 11/21/21 09:27 Sodium Chloride 0.9% 10 Ml Flush Syringe IV 10 ml BID FRANK Administration Sodium Chloride 10 ml 11/20/21 17:40 Sodium Chloride 0.9% 10 Ml Flush Syringe IV PRN PRN LINE FLUSH <BRANDOSARAH Mccabe - Last Filed: 11/22/21 07:34> Assessment and Plan Assessment and plan: I saw and evaluated the patient. I agree with the findings and the plan of care as documented in the Nurse Practitioner's~note, with the following corrections and additions. Spoke extensively to the family and discussed poor prognosis. Patients ex- stated she will talk to their children and understands the severity of the illness. When asked about organ donations she stated "I am not sure he is an organ donor and i doubt he has any organs that can be donated" Hospitalist Physical - Constitutional Vitals: Temp Pulse Resp BP Pulse Ox 98 F 44 L 17 93/51 87 11/21/21 13:34 11/21/21 16:43 11/21/21 16:43 11/21/21 16:57 11/21/21 16:57 HEART Score - HEART Score Troponin: Troponin T TNR 11/21/21 16:00 Results - Labs CBC & Chem 7: 11/21/21 16:00 11/21/21 16:00 Labs: Laboratory Last Values WBC 16.5 K/mm3 (4.5-11.0) H 11/21/21 16:00 RBC 3.68 M/mm3 (3.65-5.03) 11/21/21 16:00 Hgb 12.5 gm/dl (11.8-15.2) D 11/21/21 16:00 Hct 40.7 % (35.5-45.6) D 11/21/21 16:00 MCV 111 fl (84-94) H 11/21/21 16:00 MCH 34 pg (28-32) H 11/21/21 16:00 MCHC 31 % (32-34) L 11/21/21 16:00 RDW 17.8 % (13.2-15.2) H 11/21/21 16:00 Plt Count 162 K/mm3 (140-440) 11/21/21 16:00 Lymph # (Auto) Scale Adjuster 11/20/21 16:22 Add Manual Diff Complete 11/21/21 04:00 Total Counted 100 11/21/21 04:00 Seg Neuts % (Manual) 86.0 % (40.0-70.0) H 11/21/21 04:00 Band Neutrophils % 6.0 % 11/21/21 04:00 Lymphocytes % (Manual) 7.0 % (13.4-35.0) L 11/21/21 04:00 Reactive Lymphs % (Man) 0 % 11/21/21 04:00 Monocytes % (Manual) 0 % (0.0-7.3) 11/21/21 04:00 Eosinophils % (Manual) 0 % (0.0-4.3) 11/21/21 04:00 Basophils % (Manual) 0 % (0.0-1.8) 11/21/21 04:00 Metamyelocytes % 0 % 11/21/21 04:00 Myelocytes % 1.0 % 11/21/21 04:00 Promyelocytes % 0 % 11/21/21 04:00 Blast Cells % 0 % 11/21/21 04:00 Nucleated RBC % 1.0 % (0.0-0.9) H 11/21/21 04:00 Seg Neutrophils # Man 17.6 K/mm3 (1.8-7.7) H 11/21/21 04:00 Band Neutrophils # 1.2 K/mm3 11/21/21 04:00 Lymphocytes # (Manual) 1.4 K/mm3 (1.2-5.4) 11/21/21 04:00 Abs React Lymphs (Man) 0.0 K/mm3 11/21/21 04:00 Monocytes # (Manual) 0.0 K/mm3 (0.0-0.8) 11/21/21 04:00 Eosinophils # (Manual) 0.0 K/mm3 (0.0-0.4) 11/21/21 04:00 Basophils # (Manual) 0.0 K/mm3 (0.0-0.1) 11/21/21 04:00 Metamyelocytes # 0.0 K/mm3 11/21/21 04:00 Myelocytes # 0.2 K/mm3 11/21/21 04:00 Promyelocytes # 0.0 K/mm3 11/21/21 04:00 Blast Cells # 0.0 K/mm3 11/21/21 04:00 WBC Morphology Not Reportable 11/21/21 04:00 Hypersegmented Neuts Not Reportable 11/21/21 04:00 Hyposegmented Neuts Not Reportable 11/21/21 04:00 Hypogranular Neuts Not Reportable 11/21/21 04:00 Smudge Cells Not Reportable 11/21/21 04:00 Toxic Granulation Not Reportable 11/21/21 04:00 Toxic Vacuolation Not Reportable 11/21/21 04:00 Dohle Bodies Not Reportable 11/21/21 04:00 Pelger-Huet Anomaly Not Reportable 11/21/21 04:00 Юлия Rods Not Reportable 11/21/21 04:00 Platelet Estimate Consistent w auto 11/21/21 04:00 Clumped Platelets Not Reportable 11/21/21 04:00 Plt Clumps, EDTA Not Reportable 11/21/21 04:00 Large Platelets Not Reportable 11/21/21 04:00 Giant Platelets Not Reportable 11/21/21 04:00 Platelet Satelliting Not Reportable 11/21/21 04:00 Plt Morphology Comment Not Reportable 11/21/21 04:00 RBC Morphology Not Reportable 11/21/21 04:00 Dimorphic RBCs Not Reportable 11/21/21 04:00 Polychromasia Few 11/21/21 04:00 Hypochromasia Not Reportable 11/21/21 04:00 Poikilocytosis Not Reportable 11/21/21 04:00 Anisocytosis Few 11/21/21 04:00 Microcytosis Not Reportable 11/21/21 04:00 Macrocytosis Few 11/21/21 04:00 Spherocytes Not Reportable 11/21/21 04:00 Pappenheimer Bodies Not Reportable 11/21/21 04:00 Sickle Cells Not Reportable 11/21/21 04:00 Target Cells Not Reportable 11/21/21 04:00 Tear Drop Cells Not Reportable 11/21/21 04:00 Ovalocytes Not Reportable 11/21/21 04:00 Helmet Cells Not Reportable 11/21/21 04:00 Hung-Hypoluxo Bodies Not Reportable 11/21/21 04:00 Graff Rings Not Reportable 11/21/21 04:00 [place] Cells Not Reportable 11/21/21 04:00 Bite Cells Not Reportable 11/21/21 04:00 Crenated Cell Not Reportable 11/21/21 04:00 Elliptocytes Not Reportable 11/21/21 04:00 Acanthocytes (Spur) Not Reportable 11/21/21 04:00 Rouleaux Not Reportable 11/21/21 04:00 Hemoglobin C Crystals Not Reportable 11/21/21 04:00 Schistocytes Not Reportable 11/21/21 04:00 Malaria parasites Not Reportable 11/21/21 04:00 Ramon Bodies Not Reportable 11/21/21 04:00 Hem Pathologist Commnt No 11/21/21 04:00 PT 15.7 Sec. (12.2-14.9) H 11/20/21 16: INR 1.12 (0.87-1.13) 11/20/21 16: APTT 32.8 Sec. (24.2-36.6) 11/20/21 16:22 D-Dimer 8419.54 ng/mlDDU (0-234) H 11/20/21 16:22 ABG pH 7.045 pH Units (7.350-7.450) L* 11/21/21 09:30 ABG pCO2 61.6 mm Hg 11/21/21 09:30 ABG pO2 50.0 mm Hg (80.0-90.0) L 11/21/21 09:30 ABG HCO3 16.5 mmol/L (20.0-26.0) L 11/21/21 09:30 ABG O2 Saturation 70.6 % (95.0-99.0) L 11/21/21 09:30 ABG O2 Content 14.4 (0.0-44) 11/21/21 09:30 ABG Base Excess -14.7 mmol/L (-2.0-3.0) L 11/21/21 09:30 ABG Hemoglobin 14.8 gm/dl (14.0-18.0) 11/21/21 09:30 ABG Carboxyhemoglobin 1.0 % (0.0-5.0) 11/21/21 09:30 ABG Methemoglobin 0.7 % (0.0-1.5) 11/21/21 09:30 Oxyhemoglobin 69.3 % (95.0-99.0) L 11/21/21 09:30 FiO2 100 % 11/21/21 09:30 Sodium 147 mmol/L (137-145) H 11/21/21 16:00 Potassium 4.3 mmol/L (3.6-5.0) D 11/21/21 16:00 Chloride 93.9 mmol/L (98-107) L 11/21/21 16:00 Carbon Dioxide 17 mmol/L (22-30) L 11/21/21 16:00 Anion Gap 40 mmol/L 11/21/21 16:00 BUN 30 mg/dL (9-20) H 11/21/21 16:00 Creatinine 4.0 mg/dL (0.8-1.3) H 11/21/21 16:00 Estimated GFR 19 ml/min 11/21/21 16:00 BUN/Creatinine Ratio 8 % 11/21/21 16:00 Glucose 227 mg/dL (75-100) H 11/21/21 16:00 POC Glucose 184 mg/dL (70-105) H 11/21/21 16:24 Lactic Acid 22.40 mmol/L (0.7-2.0) H* 11/21/21 16:00 Calcium 9.6 mg/dL (8.4-10.2) 11/21/21 16:00 Phosphorus 16.20 mg/dL (2.5-4.5) H D 11/21/21 16:00 Magnesium 2.70 mg/dL (1.7-2.3) H 11/21/21 16:00 Total Bilirubin 0.80 mg/dL (0.1-1.2) 11/21/21 16:00 AST 5275 units/L (5-40) H 11/21/21 16:00 ALT 2643 units/L (7-56) H 11/21/21 16:00 Alkaline Phosphatase 163 units/L (35-129) H 11/21/21 16:00 Lactate Dehydrogenase 2692 units/L (91-180) H 11/21/21 10:47 Total Creatine Kinase 3482 units/L (55-170) H 11/21/21 16:00 CK-MB (CK-2) 83.5 ng/mL (0.0-4.0) H 11/21/21 16:00 CK-MB (CK-2) Rel Index 2.3 (0-4) 11/21/21 16:00 Troponin T TNR 11/21/21 16:00 C-Reactive Protein 4.20 mg/dL (0.00-1.30) H 11/21/21 10:47 Total Protein 3.9 g/dL (6.3-8.2) L D 11/21/21 16:00 Albumin 2.1 g/dL (3.9-5) L 11/21/21 16:00 Albumin/Globulin Ratio 1.2 % 11/21/21 16:00 Procalcitonin 81.86 ng/mL (<0.15) 11/21/21 10:47 Urine Color Yellow (Yellow) 11/20/21 22:55 Urine Turbidity Cloudy (Clear) 11/20/21 22:55 Urine pH 6.0 (5.0-7.0) 11/20/21 22:55 Ur Specific [place] 1.011 (1.003-1.030) 11/20/21 22:55 Urine Protein 30 mg/dl mg/dL (Negative) 11/20/21 22:55 Urine Glucose (UA) Neg mg/dL (Negative) 11/20/21 22:55 Urine Ketones Neg mg/dL (Negative) 11/20/21 22:55 Urine Blood Sm (Negative) 11/20/21 22:55 Urine Nitrite Neg (Negative) 11/20/21 22:55 Urine Bilirubin Neg (Negative) 11/20/21 22:55 Urine Urobilinogen < 2.0 mg/dL (<2.0) 11/20/21 22:55 Ur Leukocyte Esterase Neg (Negative) 11/20/21 22:55 Urine WBC (Auto) 11.0 /HPF (0.0-6.0) H 11/20/21 22:55 Urine RBC (Auto) 12.0 /HPF (0.0-6.0) 11/20/21 22:55 U Epithel Cells (Auto) < 1.0 /HPF (0-13.0) 11/20/21 22:55 Urine Bacteria (Auto) 4+ /HPF (Negative) 11/20/21 22:55 Urine Mucus 3+ /HPF 11/20/21 22:55 Urine Yeast (Budding) 2+ /HPF 11/20/21 22:55 Urine Sperm 3+ /HPF (USER INTERFACE ARTIST) 11/20/21 22:55 Urine Opiates Screen Presumptive negative 11/20/21 22:55 Urine Methadone Screen Presumptive negative 11/20/21 22:55 Ur Barbiturates Screen Presumptive negative 11/20/21 22:55 Ur Phencyclidine Scrn Presumptive negative 11/20/21 22:55 Ur Amphetamines Screen Presumptive negative 11/20/21 22:55 U Benzodiazepines Scrn Presumptive negative 11/20/21 22:55 Urine Cocaine Screen Presumptive negative 11/20/21 22:55 U Marijuana (THC) Screen Presumptive negative 11/20/21 22:55 Drugs of Abuse Note Disclamer 11/20/21 22:55 Blood Type O POSITIVE 11/20/21 18:15 Antibody Screen Negative 11/20/21 18:15 Microbiology: Microbiology 11/20/21 18:15 Peripheral/Venous Blood Culture - Preliminary NO GROWTH AFTER 24 HOURS 11/20/21 18:15 Peripheral/Venous Blood Culture - Preliminary NO GROWTH AFTER 24 HOURS 11/20/21 Unknown Sputum - Endotracheal Wash Sputum Culture - Preliminary Williamson/IV: Voiding Method Indwelling Catheter
[2021-11-21 17:04] LABS: Hematocrit 40.7 % (35.5-45.6); Hemoglobin 12.5 gm/dl (11.8-15.2); Mean Corpuscular Volume 111 fl (84-94)
--- NOTE | 2021-11-21 17:04 | Event Note ---
Date: 11/21/21 While in the room with operations general agent, patient heriberto down then went asystole. A CODE Elkin was called and patient was treated per ACLS protocol, ROSC was achieved. See code sheet for details. Patient's daughter, Irving Vasquez , was notified via phone. She was made aware of recent code and patient's poor prognosis was again reiterated and she was advice to come in the hospital to visit patient. Code status was addressed at this time. She verbalized understanding of the info given and stated she will contact her brother and the rest of her family to get everyone's input. She will call us back once a decision was made. All questions and concerns were addressed at this time. Team will continue to follow up with further updates. +CCT 30minutes
--- NOTE | 2021-11-21 18:48 | Event Note ---
FIFI FERNANDES called. I presented to bedside. Patient initiated on ACLS protocol with an initial return of perfusing cardiac rhythm. Patient again developed asystolic arrest and was reinitiated on ACLS protocol. Patient was unable to regain a perfusing cardiac rhythm. On neurologic exam the patient was found to have absent brainstem reflexes, with absent pupillary response. Patient pupils are fixed and dilated. On respiratory exam the patient had absent breath sounds. On cardiac exam the patient had absent cardiac sounds. Patient had asystole on quality assurance monitor. Patient pronounced at 1649 hrs. Patient family notified and was in attendance. Advanced care planning conducted. Patient family informed of patient during family conference. Bereavement services offered. Patient family acknowledged understanding events. +30 minutes. The high probability of a clinically significant, sudden or life threatening deterioration of the [Cardiac, pulmonary, renal, ID, Neuro] system(s) required my full and direct attention, intervention and personal management. The aggregate critical care time was [92] minutes. This time is in addition to time spent performing reported procedures but includes the following: [x] Data Review and interpretation [x] Patient assessment and monitoring of vital signs [x] Documentation [x] Medication orders and management critical care time dedicated to bedside patient care, reviewing lab and imaging studies.
--- NOTE | 2021-11-21 18:49 | Death Note ---
Note Date of : 11/21/21 Time of : 18:49 Time Pronounced: 18:49 - Preliminary Cause of (problem) (1) Sepsis Preliminary cause of (2) Acute hypoxemic respiratory failure Preliminary cause of (3) Cardiac arrest Preliminary cause of (4) Cardiogenic shock Preliminary cause of (5) Toxic metabolic encephalopathy Preliminary cause of (6) Metabolic acidosis Preliminary cause of (7) Pneumonia Preliminary cause of (8) Obesity hypoventilation syndrome Preliminary cause of (9) DVT prophylaxis Preliminary cause of (10) Advance care planning Preliminary cause of
[2021-11-21 18:57] VITALS: BP 93/51
--- NOTE | 2021-11-22 09:14 | Electrocardiograph Report ---
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
== END 2021-11-21 20:15 | DRG 871 ==
LOC: ED 15:33 → CC1 17:40
PROVIDERS: ADMIT Internal Medicine; ATTEND Internal Medicine
PROC: 5A1945Z Respiratory Ventilation, 24-96 Consecutive Hours (ICD-10-PCS; 2021-11-20)
PROC: 0BH17EZ Insertion of Endotracheal Airway into Trachea, Via Natural or Artificial Opening (ICD-10-PCS; 2021-11-20)
PROC: 02HV33Z Insertion of Infusion Device into Superior Vena Cava, Percutaneous Approach (ICD-10-PCS; 2021-11-20)
PROC: B548ZZA Ultrasonography of Superior Vena Cava, Guidance (ICD-10-PCS; 2021-11-20)
PROC: 4A033R1 Measurement of Arterial Saturation, Peripheral, Percutaneous Approach (ICD-10-PCS; principal; 2021-11-21)
DX: A41.9 Sepsis, unspecified organism (principal); J96.01 Acute respiratory failure with hypoxia; G92.8 Other toxic encephalopathy; J18.9 Pneumonia, unspecified organism; R65.21 Severe sepsis with septic shock; N17.0 Acute kidney failure with tubular necrosis; K72.00 Acute and subacute hepatic failure without coma; E66.2 Morbid (severe) obesity with alveolar hypoventilation; Z68.43 Body mass index [BMI] 50.0-59.9, adult; G93.1 Anoxic brain damage, not elsewhere classified; R57.0 Cardiogenic shock; I46.9 Cardiac arrest, cause unspecified; E11.9 Type 2 diabetes mellitus without complications; J44.9 Chronic obstructive pulmonary disease, unspecified; I50.9 Heart failure, unspecified; I11.0 Hypertensive heart disease with heart failure; Z96.653 Presence of artificial knee joint, bilateral; F17.200 Nicotine dependence, unspecified, uncomplicated; Z71.3 Dietary counseling and surveillance; E87.6 Hypokalemia
CPT/HCPCS: 36415; 36600; 70450; 71045; 71260; 72125; 74018; 74177; 80053; 80307; 81001; 82140; 82550; 82553; 82803; 82962; 83615; 83735; 84100; 84145; 84484; 85007; 85025; 85027; 85379; 85610; 85730; 86140; 86850; 86900; 86901; 87040; 87070; 87086; 87205; 93005; 93306; 94002; 94003; G0378; J2354; J3490; Q0162; C8929; C9113; J0171; J0282; J0692; J1265; J1644; J2001; J2370; J3480; J7030; J7040; J7050; J7070; Q9967